=== PATIENT | female | born 1990 | race Caucasian/White ===

== ENCOUNTER 2016-11-07 16:39 | Emergency (ER) | payer OTHER ==
[~2016-11-07] VITALS: Ht 162.6 cm; Wt 113.4 kg
[2016-11-07 17:39] LABS: APPEARANCE,URINE SLIGHTLY CLOUDY; KETONES,URINE NEGATIVE (NEGATIVE); LEUKOCYTE ESTERASE ,URINE 2+ (NEGATIVE); NITRITE,URINE NEGATIVE (NEGATIVE); PH,URINE 6.5 (4.5-8.0); PROTEIN,URINE 2+ (NEGATIVE); UROBILINOGEN,URINE 1 MG/DL (0.0-1.0)
[2016-11-07 17:47] LABS: BACTERIA,URINE FEW /HPF; SQUAMOUS EPITHELIAL CELL,UR FEW /LPF (NONE/OCC)
[2016-11-07] MEDS ORDERED: NITROFURANTOIN100 M2 ORAL (18:00)
[2016-11-07] MEDS ORDERED: TYLENOL EXTRA500 MG ORAL (18:00)
[2016-11-07 18:17] VITALS: BP 127/88
[2016-11-07 18:19] VITALS: BP 127/88
--- NOTE | 2016-11-07 21:32 | Emergency Room Report ---
History of Present Illness General Chief Complaint: Female Urogenital Problems Source: Patient Present Illness HPI Patient is a 26-year-old female presenting with dysuria and increased vaginal bleeding. The patient states that she is currently menstruating but has noticed a darkened blood discharge from the vagina. The patient describes pain as 8/10 burning sensation which only occurs during urination. The pain does not radiate. The patient denies any other vaginal discharge including blood clots or tissue. The patient denies other symptoms including nausea, vomiting, fever, chills, flank pain Allergies: Coded Allergies: TRAZODONE (Verified Allergy, Unknown, 11/07/16) Patient History Past Medical History: see triage record Pertinent Family History: none Last Menstrual Period: Currently on menstrual cycle Now: No Reviewed Nursing Documentation: PMH: Agreed, PSxH: Agreed Nursing Documentation-PMH Past Medical History: No History, Except For Review of Systems All Other Systems: negative except mentioned in HPI Physical Exam Vital Signs Date Time Temp Pulse Resp B/P Pulse Ox O2 Delivery O2 Flow Rate FiO2 11/07/16 16:43 98.1 88 16 131/90 99 Room Air Sp02 EP Interpretation: reviewed, normal General Appearance: no apparent distress, alert, GCS 15, non-toxic Head: normocephalic, atraumatic Eyes: bilateral eye PERRL, bilateral eye normal inspection ENT: hearing grossly normal, normal pharynx, no angioedema, normal voice Gastrointestinal: normal bowel sounds, non tender, soft, non-distended, no guarding, no rebound Genitourinary: normal inspection, no CVA tenderness Musculoskeletal: back normal, gait/station normal, normal range of motion, non- tender Neurologic: alert, oriented x3, responsive, motor strength/tone normal, sensory intact, speech normal Psychiatric: judgement/insight normal, memory normal, mood/affect normal, no suicidal/homicidal ideation Skin: normal color, no rash, warm/dry, well hydrated Lymphatic: no adenopathy Medical Decision Making PA Attestation Dr. Hernandez is my supervising physician. Patient management was discussed with my supervising physician Diagnostic Impression: Primary Impression: Dysmenorrhea Additional Impression: Urinary tract infection ER Course Patient is a 26-year-old female presenting with dysuria and increased vaginal bleeding Differential diagnosis considered but not limited to: UTI, vaginitis, pyelonephritis, PID, Physical exam: Vitals are within normal limits. No apparent distress Abdomen is soft and nontender. No guarding. Normal bowel sounds. No CVA tenderness Urinalysis shows 2+ leukocyte esterase with 2-4 white blood cells and few bacteria. Otherwise consistent with menstruation The patient will be treated for UTI rarely based on symptoms. Patient is given a prescription for Macrobid and Tylenol. Pt states she is unable to tolerate nsaids. ER precautions are given and the patient will followup with PMD Laboratory Tests Test 11/07/16 17:00 Urine Color Red Urine Appearance Slightly cloudy Urine pH 6.5 (4.5-8.0) Urine Specific [place] 1.015 (1.005-1.035) Urine Protein 2+ (NEGATIVE) H Urine Glucose (UA) Negative (NEGATIVE) Urine Ketones Negative (NEGATIVE) Urine Occult Blood 5+ (NEGATIVE) H Urine Nitrite Negative (NEGATIVE) Urine Bilirubin Negative (NEGATIVE) Urine Urobilinogen 1 MG/DL (0.0-1.0) H Urine Leukocyte Esterase 2+ (NEGATIVE) H Urine RBC 10-15 /HPF (0 - 2) H Urine WBC 2-4 /HPF (0 - 2) Urine Squamous Epithelial Cells Few /LPF (NONE/OCC) Urine Bacteria Few /HPF (NONE) Urine HCG, Qualitative Negative Lab Results Impression Urinalysis shows 2+ leukocyte esterase with 2-4 white blood cells and few bacteria. Otherwise consistent with menstruation Last Vital Signs Date Time Temp Pulse Resp B/P Pulse Ox O2 Delivery O2 Flow Rate FiO2 11/07/16 18:19 98.2 84 16 127/88 98 Room Air Status: improved Disposition: HOME, SELF-CARE Condition: Improved Scripts Nitrofurantoin Monohyd/M-Cryst* (MACROBID 100 MG*) 100 Mg Capsule 100 MG ORAL EVERY 12 HOURS, #14 CAP Prov: TERZIAN,CARLOS P.A. 11/07/16 Acetaminophen* (TYLENOL EXTRA STRENGTH*) 500 Mg Tablet 500 MG ORAL Q8H Y for Prn Headache/Temp > 101, #30 TAB 0 Refills Prov: TERZIAN,CARLOS P.A. 11/07/16 Patient Instructions: Urinary Tract Infection, Dysmenorrhea Additional Instructions: I discussed my findings with the patient. All questions and concerns have been answered. Treatment and medication compliance have been addressed. I advised the patient that they need to follow up with PMD in 3-5 days. Return to ED if symptoms worsen, new symptoms arise, or if needed for any reason. Patient verbalized understanding of discharge instructions. CARLOS TORIBIO Nov 07, 2016 21:32
== END 2016-11-07 18:22 | disposition home or self-care (01) ==
LOC: EMR 17:01
DX: N39.0 Urinary tract infection, site not specified (principal); N94.6 Dysmenorrhea, unspecified; Z88.8 Allergy status to other drugs, medicaments and biological substances
CPT/HCPCS: 81003; 81025; 99284

== ENCOUNTER 2016-12-05 16:57 | Emergency (ER) | payer OTHER ==
[~2016-12-05] VITALS: Ht 165.1 cm; Wt 112.0 kg
[~2016-12-05 16:57] MED LIST: NITROFURANTOIN100 M2 ORAL; TYLENOL EXTRA500 MG ORAL
[2016-12-05] MEDS ORDERED: BENADRYL25 MG ORAL (17:19)
[2016-12-05] MEDS ORDERED: ANTI-ITCH56 GM TP (17:19)
--- NOTE | 2016-12-05 17:23 | Emergency Room Report ---
History of Present Illness General Chief Complaint: Skin Rash/Abscess Source: Patient Present Illness HPI 26 YO Female presents to the ED c/o Itching, swelling, and erythema of several insect bites on the lower extremity x 2 days. no relief from calamine lotion.Patient denies fevers, chills, abdominal pain, nausea, vomiting or lesions elsewhere. Patient denies swelling of the lips or time denies wheezing or shortness of breath patient denies recent outdoor activities such as hiking. pt UTD with vaccinations. reports hx of hypothyroid. Denies joint pain. Denies CP, Palpitations, LOC, AMS, dizziness, Changes in Vision, Sensation, paresthesias, or a sudden severe headache.. Allergies: Coded Allergies: TRAZODONE (Verified Allergy, Unknown, 11/07/16) Patient History Past Medical History: see triage record Past Surgical History: none Pertinent Family History: none Last Menstrual Period: 11/10/2016 Now: No Immunizations: UTD Reviewed Nursing Documentation: PMH: Agreed, PSxH: Agreed Nursing Documentation-PMH Past Medical History: No History, Except For Review of Systems All Other Systems: negative except mentioned in HPI Physical Exam Vital Signs Date Time Temp Pulse Resp B/P Pulse Ox O2 Delivery O2 Flow Rate FiO2 12/05/16 17:13 98.4 81 16 124/89 98 Room Air Sp02 EP Interpretation: reviewed, normal General Appearance: no apparent distress, alert, GCS 15, non-toxic Head: normocephalic, atraumatic Eyes: bilateral eye PERRL, bilateral eye normal inspection ENT: hearing grossly normal, normal pharynx, no angioedema, normal voice, other - no swelling of the lips or tongue Neck: full range of motion, supple/symm/no masses Respiratory: chest non-tender, lungs clear, normal breath sounds, no wheezing, speaking full sentences Cardiovascular #1: regular rate, rhythm, no edema Musculoskeletal: back normal, gait/station normal, normal range of motion, non- tender Neurologic: alert, oriented x3, responsive, motor strength/tone normal, sensory intact, speech normal Psychiatric: judgement/insight normal, memory normal, mood/affect normal Skin: rash - 4 lesions on the bilateral LE: blanching erythema with mild induration and increased temperature to palpation surrounding each punctate lesion, no targetoid lesions, consistent with insect bite and localized reaction , no crusting, or evidence to suggest secondary infeciton at this time. Lymphatic: no adenopathy Medical Decision Making PA Attestation Dr. Land is my supervising Physician whom patient management has been discussed with. Diagnostic Impression: Primary Impression: Insect bites Qualified Codes: W57.XXXA - Bitten or stung by nonvenomous insect and other nonvenomous arthropods, initial encounter ER Course Pt. presents to the ED c/o Itching, swelling, and erythema of several insect bites on the lower extremity x 2 days. no relief from calamine lotion. Ddx considered but are not limited to cellulitis, scabies, insect bites, tic bites, spider bites, contact dermatitis, Drug reaction, allergic reaction, fungal infection, lice. Vital signs: are WNL, pt. is afebrile H&PE are most consistent with insect bite with localized reaction, no evidence of infection. ORDERS: none required at this time, the diagnosis is clinical ED INTERVENTIONS: -25mg Benadryl PO DISCHARGE: At this time pt. is stable for d/c to home. Will provide printed patient care instructions, and any necessary prescriptions. Care plan and follow up instructions have been discussed with the patient prior to discharge. Last Vital Signs Date Time Temp Pulse Resp B/P Pulse Ox O2 Delivery O2 Flow Rate FiO2 12/05/16 17:13 98.4 81 16 124/89 98 Room Air Disposition: HOME, SELF-CARE Condition: Stable Scripts Hydrocortisone 2% Cream (ANTI-ITCH 2% CREAM) Y Cr 1 GM TP TID, #56 GM Prov: Saloni Silva 12/05/16 Diphenhydramine Hcl* (BENADRYL*) 25 Mg Capsule 25 MG ORAL Q6H Y for Itching for 7 Days, #28 CAP Prov: Saloni Silva 12/05/16 Patient Instructions: Insect Bite Additional Instructions: Take medications as directed. Follow up with PCP in 3-5 days Return sooner to ED if new symptoms occur, or current symptoms become worse. Do not drink alcohol, drive, or operate heavy machinery while taking Benadryl as this may cause drowsiness. - Please note that this Emergency Department Report was dictated using [employer]engineer technology software, occasionally this can lead to erroneous entry secondary to interpretation by the dictation equipment. Saloni Silva Dec 05, 2016 17:23
[2016-12-05 17:32] VITALS: BP 119/85
[2016-12-05 17:33] VITALS: BP 119/85
== END 2016-12-05 17:33 | disposition home or self-care (01) ==
LOC: EMR 17:31
DX: S80.862A Insect bite (nonvenomous), left lower leg, initial encounter (principal); S80.861A Insect bite (nonvenomous), right lower leg, initial encounter; Z88.8 Allergy status to other drugs, medicaments and biological substances; W57.XXXA Bitten or stung by nonvenomous insect and other nonvenomous arthropods, initial encounter; Y92.9 Unspecified place or not applicable; Y99.8 Other external cause status
CPT/HCPCS: 99284

== ENCOUNTER 2016-12-08 19:04 | Emergency (ER) | payer OTHER ==
[~2016-12-08] VITALS: Ht 165.1 cm; Wt 112.0 kg
[~2016-12-08 19:04] MED LIST changes: +ANTI-ITCH56 GM TP; +BENADRYL25 MG ORAL
[2016-12-08] MEDS ORDERED: Famotidine 20 MG/ 2ML VIAL IVP ONE (19:30)
[2016-12-08] MEDS ORDERED: Morphine Sulfate 4mg/ml Inj IVP ONE ×2 (19:30→21:15)
--- NOTE | 2016-12-08 19:42 | Emergency Room Report ---
History of Present Illness General Chief Complaint: Abdominal Pain Source: Patient, Medical Record Present Illness HPI Patient presents with epigastric pain. Began about 1 AM. Having loose stools for several days with some blood on the toilet paper. This pain is epigastric and doesn't radiate to her back. She's had pancreatitis in the past she denies it being like that. The pain is 9/10 at this time, burning, worse with movement and not radiating. She drank some alcohol last night. She was told she might have an ulcer. No URI sy, DO, dizziness, dysuria (though treated for UTI October (0-2 WBC at that time - culture not done).) Stress at home with grandmother living in. Not suicidal. Allergies: Coded Allergies: TRAZODONE (Verified Allergy, Unknown, 11/07/16) Patient History Past Medical History: see triage record Social History: Reports: alcohol use, Denies: smoking Social History Narrative with friend - stress at home Last Menstrual Period: 11/08/16 Now: No Reviewed Nursing Documentation: PMH: Agreed, PSxH: Agreed Nursing Documentation-PMH Hx Asthma: Yes - Bronchial asthma Hx Gastrointestinal Problems: Yes - Pancreatitis, Gall bladder removal 2007 Review of Systems All Other Systems: negative except mentioned in HPI Physical Exam Vital Signs Date Time Temp Pulse Resp B/P Pulse Ox O2 Delivery O2 Flow Rate FiO2 12/08/16 19:15 98.4 113 14 149/93 97 Room Air Sp02 EP Interpretation: reviewed, normal General Appearance: well appearing, no apparent distress - though in pain, GCS 15 Head: normocephalic Eyes: bilateral eye PERRL, bilateral eye anticteric, bilateral eye normal inspection ENT: moist mucus membranes Neck: supple Respiratory: lungs clear, normal breath sounds Cardiovascular #1: regular rate, rhythm Cardiovascular #2: 2+ radial (R) Gastrointestinal: soft, no rebound, guarding - epigastric, tenderness Musculoskeletal: back normal, gait/station normal, normal range of motion Neurologic: alert, oriented x3, grossly normal Psychiatric: depressed affect Skin: normal inspection, warm/dry Medical Decision Making Diagnostic Impression: Primary Impression: Abdominal pain Qualified Codes: R10.13 - Epigastric pain Additional Impressions: Urinary tract infection Qualified Codes: N30.00 - Acute cystitis without hematuria Stress ER Course Patient presents with epigastric pain that began last night. Differential includes gastritis, pancreatitis, GERD, vital syndrome amongst others. She also has been having diarrhea and some blood on the toilet paper which is consistent with a hemorrhoid. The fact she drink alcohol contributes to the problem. Patient to be treated with IV hydration, analgesia and Pepcid. Labs with normal WBC and good H/H. Lipase normal. Needing repeat morphine. Improved after this. UTI - Rocephin started and discussed prior dx "UTI". Improved. Still with min discomfort epigastric area. As normal WBC and improved, no imaging studies indicated at this time. Patient stable for outpatient observation and treatment. Laboratory Tests Test 12/08/16 20:10 12/08/16 20:15 Urine Color Brown Urine Appearance Clear Urine pH 5 (4.5-8.0) Urine Specific [place] 1.025 (1.005-1.035) Urine Protein 2+ (NEGATIVE) H Urine Glucose (UA) Negative (NEGATIVE) Urine Ketones 1+ (NEGATIVE) H Urine Occult Blood 3+ (NEGATIVE) H Urine Nitrite Negative (NEGATIVE) Urine Bilirubin 1+ (NEGATIVE) H Urine Ictotest Negative Urine Urobilinogen 4 MG/DL (0.0-1.0) H Urine Leukocyte Esterase 3+ (NEGATIVE) H Urine RBC 10-15 /HPF (0 - 2) H Urine WBC 5-10 /HPF (0 - 2) H Urine Squamous Epithelial Cells Few /LPF (NONE/OCC) Urine Amorphous Sediment Few /LPF (NONE) H Urine Bacteria Moderate /HPF (NONE) H Urine Mucus Few /LPF (NONE/OCC) H Urine HCG, Qualitative Negative Urine Opiates Screen Positive (NEGATIVE) H Urine Barbiturates Screen Negative (NEGATIVE) Phencyclidine (PCP) Screen Negative (NEGATIVE) Urine Amphetamines Screen Negative (NEGATIVE) Urine Benzodiazepines Screen Negative (NEGATIVE) Urine Cocaine Screen Negative (NEGATIVE) Urine Marijuana (THC) Screen Positive (NEGATIVE) H White Blood Count 8.3 K/UL (4.8-10.8) Red Blood Count 4.44 M/UL (4.20-5.40) Hemoglobin 13.6 G/DL (12.0-16.0) Hematocrit 39.5 % (37.0-47.0) Mean Corpuscular Volume 89 FL (80-99) Mean Corpuscular Hemoglobin 30.7 PG (27.0-31.0) Mean Corpuscular Hemoglobin Concent 34.6 G/DL (32.0-36.0) Red Cell Distribution Width 14.9 % (11.6-14.8) H Platelet Count 230 K/UL (150-450) Mean Platelet Volume 6.5 FL (6.5-10.1) Neutrophils (%) (Auto) 82.3 % (45.0-75.0) H Lymphocytes (%) (Auto) 8.3 % (20.0-45.0) L Monocytes (%) (Auto) 8.2 % (1.0-10.0) Eosinophils (%) (Auto) 0.1 % (0.0-3.0) Basophils (%) (Auto) 1.0 % (0.0-2.0) Prothrombin Time 10.1 SEC (9.30-11.50) Prothrombin Time INR 1.0 (0.9-1.1) PTT 24 SEC (23-33) Sodium Level 136 mEQ/L (135-145) Potassium Level 3.9 mEQ/L (3.4-4.9) Chloride Level 97 mEQ/L (98-107) L Carbon Dioxide Level 22 mEQ/L (20-30) Anion Gap 17 (5-15) H Blood Urea Nitrogen 12 mg/dL (7-23) Creatinine 0.8 mg/dL (0.5-0.9) Estimate Glomerular Filtration Rate > 60 mL/min (>60) Glucose Level 99 mg/dL (74-106) Calcium Level 8.5 mg/dL (8.6-10.2) L Total Bilirubin 0.7 mg/dL (0.0-1.2) Aspartate Amino Transferase (AST) 26 U/L (5-40) Alanine Aminotransferase (ALT) 37 U/L (3-33) H Alkaline Phosphatase 75 U/L (35-104) Total Protein 7.0 g/dL (6.6-8.7) Albumin 4.3 g/dL (3.5-5.2) Globulin 2.7 g/dL Albumin/Globulin Ratio 1.5 (1.0-2.7) Lipase 27 U/L (< 60) Serum Alcohol < 10 mg/dL Last Vital Signs Date Time Temp Pulse Resp B/P Pulse Ox O2 Delivery O2 Flow Rate FiO2 12/08/16 23:40 18 131/79 90 12/08/16 22:34 Room Air 12/08/16 20:30 88 12/08/16 19:15 98.4 Status: improved Disposition: HOME, SELF-CARE Condition: Improved Scripts Famotidine (PEPCID) 20 Mg Tablet 20 MG ORAL DAILY, #30 TAB 0 Refills Prov: Kingsley Das M.D. 12/08/16 Hydrocodone Bit/Acetaminophen 5-325* (NORCO 5-325*) 1 Each Tablet 1 TAB ORAL Q6H Y for For Pain, #10 TAB 0 Refills Prov: Kingsley Das M.D. 12/08/16 Ondansetron Odt* (ZOFRAN ODT*) 4 Mg Tab.rapdis 4 MG ORAL Q6H Y for Nausea & Vomiting, #10 TAB 1 Refill Prov: Kingsley Das M.D. 12/08/16 Nitrofurantoin Monohyd/M-Cryst* (MACROBID 100 MG*) 100 Mg Capsule 100 MG ORAL EVERY 12 HOURS, #14 CAP Prov: Kingsley Das M.D. 12/08/16 Kingsley Das M.D. Dec 08, 2016 19:42
[2016-12-08 20:30] VITALS: BP 130/72
[2016-12-08 20:30] LABS: APPEARANCE,URINE CLEAR; KETONES,URINE 1+ (NEGATIVE); LEUKOCYTE ESTERASE ,URINE 3+ (NEGATIVE); NITRITE,URINE NEGATIVE (NEGATIVE); PH,URINE 5 (4.5-8.0); PROTEIN,URINE 2+ (NEGATIVE); UROBILINOGEN,URINE 4 MG/DL (0.0-1.0)
[2016-12-08 20:33] LABS: EOSINOPHILS % (AUTO) 0.1 % (0.0-3.0); LYMPHOCYTES % (AUTO) 8.3 % (20.0-45.0); MEAN CORPUSCULAR HEMOGLOBIN 30.7 PG (27.0-31.0); MEAN CORPUSCULAR HGB CONC 34.6 G/DL (32.0-36.0); MEAN CORPUSCULAR VOLUME 89 FL (80-99); MEAN PLATELET VOLUME 6.5 FL (6.5-10.1); MONOCYTES % (AUTO) 8.2 % (1.0-10.0); NEUTROPHILS % (AUTO) 82.3 % (45.0-75.0); PLATELET COUNT 230 K/UL (150-450); RED BLOOD COUNT 4.44 M/UL (4.20-5.40); RED CELL DISTRIBUTION WIDTH 14.9 % (11.6-14.8); WHITE BLOOD COUNT 8.3 K/UL (4.8-10.8)
[2016-12-08 20:36] LABS: PROTHROMBIN TIME 10.1 SEC (9.30-11.50)
[2016-12-08 20:39] LABS: ALANINE AMINOTRANSFERASE 37 U/L (3-33); ALBUMIN/GLOBULIN RATIO 1.5 (1.0-2.7); ALCOHOL < 10 mg/dL; ANION GAP 17 (5-15); ASPARTATE AMINO TRANSFERASE 26 U/L (5-40); CALCIUM 8.5 mg/dL (8.6-10.2); CARBON DIOXIDE 22 mEQ/L (20-30); CHLORIDE 97 mEQ/L (98-107); CREATININE 0.8 mg/dL (0.5-0.9); GLOMERULAR FILTRATION RATE > 60 mL/min (>60); HEMOLYSIS 3; LIPASE 27 U/L (< 60); POTASSIUM 3.9 mEQ/L (3.4-4.9); SODIUM 136 mEQ/L (135-145)
[2016-12-08 20:55] LABS: BACTERIA,URINE MODERATE /HPF; SQUAMOUS EPITHELIAL CELL,UR FEW /LPF (NONE/OCC)
[2016-12-08 20:56] LABS: AMORPHOUS SEDIMENT,UR FEW /LPF; MUCUS,URINE FEW /LPF (NONE/OCC)
[2016-12-08 21:05] LABS: ICTOTEST NEGATIVE
[2016-12-08] MEDS ORDERED: LEVOTHYROXINE25 MCG ORAL (21:09)
[2016-12-08] MEDS ORDERED: ONDANSETRON ODT4 MG ORAL (21:09)
[2016-12-08 21:55] VITALS: BP 109/66
[2016-12-08] MEDS ORDERED: cefTRIAXone 1 GM in NS 55 ML IVPB ONE (22:15)
[2016-12-08] MEDS ORDERED: Oxycodone/Acetaminophen 5-325 ORAL ONE (22:30)
[2016-12-08 22:34] VITALS: BP 131/79
[2016-12-08] MEDS ORDERED: PEPCID20 MG ORAL (22:35)
[2016-12-08] MEDS ORDERED: ZOFRAN ODT4 MG ORAL (22:35)
[2016-12-08] MEDS ORDERED: NORCO 5-325 TA1 EACH ORAL (22:35)
[2016-12-08] MEDS ORDERED: NITROFURANTOIN100 M2 ORAL (22:35)
[2016-12-08 23:40] VITALS: BP 131/79
== END 2016-12-08 23:30 | disposition home or self-care (01) ==
LOC: EMR 20:12
DX: R10.13 Epigastric pain (principal); N39.0 Urinary tract infection, site not specified; J45.909 Unspecified asthma, uncomplicated; Z87.19 Personal history of other diseases of the digestive system; Z90.49 Acquired absence of other specified parts of digestive tract
CPT/HCPCS: 36415; 80053; 80300; 80329; 81003; 81025; 83690; 85025; 85610; 85730; 87086; 96374; 96375; 99284; J0696; J2270; J2405; S0028

== ENCOUNTER 2016-12-10 06:23 | Inpatient (IN) | payer OTHER ==
[2016-12-10] VITALS (7 sets, daily range): BP systolic 101–130; BP diastolic 58–95
[~2016-12-10] VITALS: Ht 165.1 cm; Wt 112.0 kg
[~2016-12-10 06:23] MED LIST changes: +LEVOTHYROXINE25 MCG ORAL; +NORCO 5-325 TA1 EACH ORAL; +ONDANSETRON ODT4 MG ORAL; +PEPCID20 MG ORAL; +ZOFRAN ODT4 MG ORAL
--- NOTE | 2016-12-10 06:49 | Emergency Room Report ---
History of Present Illness General Chief Complaint: Abdominal Pain Source: Patient Present Illness HPI Patient presents emergency department today complaining of acute onset of abdominal pain the last 2-3 days. Patient has epigastric pain associated with nausea vomiting and diarrhea. Patient states that she has had over 30 episodes of diarrhea since her last visit. Patient was actually here 2 days ago at that time received laboratory workup nausea medication and pain medication. She states that her pain persists. She was diagnosed with UTI at that time started on Macrobid. She states that she's been able to tolerate the medication. No other complaints are noted. Symptoms noted to be severe. Patient denies any fever. Patient denies any dysuria or frequency or vaginal discharge. She denies any rectal bleeding.No other modifying factors. No other associated signs and symptoms. No other complaints were noted. Allergies: Coded Allergies: TRAZODONE (Verified Allergy, Unknown, 11/07/16) Patient History Past Medical History: none Past Surgical History: none Pertinent Family History: none Social History: Denies: alcohol use, drug use, smoking Last Menstrual Period: November 08 Now: No : 0 Reviewed Nursing Documentation: PMH: Agreed, PSxH: Agreed Nursing Documentation-PMH Hx Asthma: Yes - Bronchial asthma Hx Gastrointestinal Problems: Yes - Pancreatitis, Gall bladder removal 2007 Review of Systems All Other Systems: negative except mentioned in HPI Physical Exam Vital Signs Date Time Temp Pulse Resp B/P Pulse Ox O2 Delivery O2 Flow Rate FiO2 12/10/16 06:28 98.1 77 15 116/79 96 Room Air Sp02 EP Interpretation: reviewed, normal General Appearance: normal inspection, well appearing, no apparent distress, alert Head: atraumatic Eyes: bilateral eye normal inspection ENT: normal ENT inspection, hearing grossly normal, normal voice Neck: normal inspection, full range of motion, supple, no bony tend Respiratory: normal inspection, lungs clear, normal breath sounds, no respiratory distress, no retraction, no wheezing Cardiovascular #1: regular rate, rhythm, no edema Gastrointestinal: normal inspection, normal bowel sounds, soft, no guarding, no hernia, tenderness - Epigastric Genitourinary: no CVA tenderness Musculoskeletal: normal inspection, back normal, normal range of motion Neurologic: normal inspection, alert, responsive, speech normal Psychiatric: normal inspection, judgement/insight normal, anxious Skin: normal inspection, normal color, no rash Medical Decision Making Diagnostic Impression: Primary Impression: Abdominal pain Qualified Codes: R10.84 - Generalized abdominal pain Additional Impressions: Mesenteric adenitis UTI (urinary tract infection) Qualified Codes: N30.00 - Acute cystitis without hematuria ER Course Patient presents to the emergency department today complaining of abdominal pain. Differential considerations include acute pancreatitis, cholecystitis, gastritis, hepatitis, appendicitis just to name a few. Given the severity of the patient's presentation I felt this is a highly complex patient. This patient required extensive workup. Patient's laboratory workup was not impressive. CT however show evidence of mesenteric adenitis. Patient was given fluids and pain medication but remains in pain. Patient also has severe nausea. Patient states that she's unable to tolerate anything by mouth. Therefore felt the patient require admission for further pain control as well as fluid hydration. Patient also had evidence of UTI therefore patient was given one dose of Rocephin and to be initially. Patient also was given Dilaudid IV as well as Ativan. Case was discussed with Dr. Shadi Duke for transfer to [facility]. Patient is stable for transfer. Labs Test 12/10/16 06:50 White Blood Count 4.8 K/UL (4.8-10.8) Red Blood Count 4.81 M/UL (4.20-5.40) Hemoglobin 13.9 G/DL (12.0-16.0) Hematocrit 43.5 % (37.0-47.0) Mean Corpuscular Volume 91 FL (80-99) Mean Corpuscular Hemoglobin 28.8 PG (27.0-31.0) Mean Corpuscular Hemoglobin Concent 31.9 G/DL (32.0-36.0) Red Cell Distribution Width 14.9 % (11.6-14.8) Platelet Count 223 K/UL (150-450) Mean Platelet Volume 6.8 FL (6.5-10.1) Neutrophils (%) (Auto) 64.9 % (45.0-75.0) Lymphocytes (%) (Auto) 19.9 % (20.0-45.0) Monocytes (%) (Auto) 12.5 % (1.0-10.0) Eosinophils (%) (Auto) 2.1 % (0.0-3.0) Basophils (%) (Auto) 0.7 % (0.0-2.0) Urine Color Yellow Urine Appearance Slightly cloudy Urine pH 5 (4.5-8.0) Urine Specific [place] 1.025 (1.005-1.035) Urine Protein 2+ (NEGATIVE) Urine Glucose (UA) Negative (NEGATIVE) Urine Ketones 4+ (NEGATIVE) Urine Occult Blood 3+ (NEGATIVE) Urine Nitrite Negative (NEGATIVE) Urine Bilirubin 1+ (NEGATIVE) Urine Ictotest Negative Urine Urobilinogen 1 MG/DL (0.0-1.0) Urine Leukocyte Esterase 2+ (NEGATIVE) Urine RBC 5-10 /HPF (0 - 2) Urine WBC 5-10 /HPF (0 - 2) Urine Squamous Epithelial Cells Few /LPF (NONE/OCC) Urine Bacteria Few /HPF (NONE) Urine Mucus Moderate /LPF (NONE/OCC) Urine HCG, Qualitative Negative Sodium Level 138 mEQ/L (135-145) Potassium Level 3.5 mEQ/L (3.4-4.9) Chloride Level 96 mEQ/L (98-107) Carbon Dioxide Level 23 mEQ/L (20-30) Anion Gap 19 (5-15) Blood Urea Nitrogen 9 mg/dL (7-23) Creatinine 0.8 mg/dL (0.5-0.9) Estimat Glomerular Filtration Rate > 60 mL/min (>60) Glucose Level 89 mg/dL (74-106) Calcium Level 9.1 mg/dL (8.6-10.2) Total Bilirubin 0.4 mg/dL (0.0-1.2) Aspartate Amino Transf (AST/SGOT) 47 U/L (5-40) Alanine Aminotransferase (ALT/SGPT) 54 U/L (3-33) Alkaline Phosphatase 75 U/L (35-104) Total Protein 7.4 g/dL (6.6-8.7) Albumin 4.5 g/dL (3.5-5.2) Globulin 2.9 g/dL Albumin/Globulin Ratio 1.5 (1.0-2.7) Lipase 37 U/L (< 60) CT/MRI/US Diagnostic Results CT/MRI/US Diagnostic Results : Imaging Test Ordered: CT abdomenand pelvis: Mesenteric adenitis Last Vital Signs Date Time Temp Pulse Resp B/P Pulse Ox O2 Delivery O2 Flow Rate FiO2 12/10/16 06:28 98.1 77 15 116/79 96 Room Air Status: improved Disposition: XFER SHT-TRM HOSP Condition: Serious SILVINA ENGLE M.D. Dec 10, 2016 06:49
[2016-12-10] MEDS ORDERED: HYDROmorphone 1mg/ml Carpuject ONE (06:51)
[2016-12-10] MEDS ORDERED: HYDROmorphone 1 MG in NS 55 ML IV ONE (07:00)
[2016-12-10 07:09] LABS: APPEARANCE,URINE SLIGHTLY CLOUDY; KETONES,URINE 4+ (NEGATIVE); LEUKOCYTE ESTERASE ,URINE 2+ (NEGATIVE); NITRITE,URINE NEGATIVE (NEGATIVE); PH,URINE 5 (4.5-8.0); PROTEIN,URINE 2+ (NEGATIVE); UROBILINOGEN,URINE 1 MG/DL (0.0-1.0)
[2016-12-10 07:21] LABS: BASOPHILS % (AUTO) 0.7 % (0.0-2.0); EOSINOPHILS % (AUTO) 2.1 % (0.0-3.0); LYMPHOCYTES % (AUTO) 19.9 % (20.0-45.0); MEAN CORPUSCULAR HEMOGLOBIN 28.8 PG (27.0-31.0); MEAN CORPUSCULAR HGB CONC 31.9 G/DL (32.0-36.0); MEAN CORPUSCULAR VOLUME 91 FL (80-99); MEAN PLATELET VOLUME 6.8 FL (6.5-10.1); MONOCYTES % (AUTO) 12.5 % (1.0-10.0); NEUTROPHILS % (AUTO) 64.9 % (45.0-75.0); PLATELET COUNT 223 K/UL (150-450); RED BLOOD COUNT 4.81 M/UL (4.20-5.40); RED CELL DISTRIBUTION WIDTH 14.9 % (11.6-14.8); WHITE BLOOD COUNT 4.8 K/UL (4.8-10.8)
[2016-12-10 07:23] LABS: BACTERIA,URINE FEW /HPF; ICTOTEST NEGATIVE; MUCUS,URINE MODERATE /LPF (NONE/OCC); SQUAMOUS EPITHELIAL CELL,UR FEW /LPF (NONE/OCC)
[2016-12-10] MEDS ORDERED: cefTRIAXone 1 GM in NS 55 ML IVPB ONE (07:30)
[2016-12-10 07:31] LABS: ALANINE AMINOTRANSFERASE 54 U/L (3-33); ALBUMIN/GLOBULIN RATIO 1.5 (1.0-2.7); ANION GAP 19 (5-15); ASPARTATE AMINO TRANSFERASE 47 U/L (5-40); CALCIUM 9.1 mg/dL (8.6-10.2); CARBON DIOXIDE 23 mEQ/L (20-30); CHLORIDE 96 mEQ/L (98-107); CREATININE 0.8 mg/dL (0.5-0.9); GLOMERULAR FILTRATION RATE > 60 mL/min (>60); HEMOLYSIS 3; LIPASE 37 U/L (< 60); POTASSIUM 3.5 mEQ/L (3.4-4.9); SODIUM 138 mEQ/L (135-145); TOTAL PROTEIN 7.4 g/dL (6.6-8.7)
[2016-12-10] MEDS ORDERED: LORazepam Inj 2mg/ml 1ml IV ONE (08:30)
--- NOTE | 2016-12-10 09:16 | Diagnostic Imaging Report ---
Clinical Indication: Acute onset of abdominal pain in the last 2-3 days, epigastric associated with nausea vomiting and diarrhea Technique: No oral contrast utilized, per emergency room physician request IV administration nonionic contrast. Venous phase spiral acquisition obtained through the abdomen and pelvis. Multiplanar reconstructions were generated. Total dose length product 1078 mGycm. CTDIvol(s) 19 mGy. Dose reduction achieved using automated exposure control Comparison: None Findings: The appendix is normal. There is a small amount of free pelvic fluid. No evidence of diverticulosis or diverticulitis. No free intraperitoneal air. No small bowel distention. Distal esophagus, stomach, duodenum are unremarkable. The gallbladder is surgically absent. No biliary ductal dilatation. The liver, pancreas, spleen, adrenals, kidneys are unremarkable. There is incidental finding of a retroaortic left renal vein. Numerous prominent lymph nodes are seen throughout the mesenteric root, especially in the right lower quadrant. No retroperitoneal mass or adenopathy. No pelvic mass or adenopathy. Normal uterus and ovaries. Normal bladder. The included lung bases are clear. The bones are unremarkable. Impression: Numerous and prominent mesenteric root lymph nodes, nonspecific although most likely reactive. No acute or significant abnormality otherwise Trace free pelvic fluid, most likely physiologic Surgically absent gallbladder. Negative for biliary ductal dilatation Incidental finding retroaortic left renal vein The CT scanner at [facility] is accredited by the [employer] and the scans are performed using protocols designed to limit radiation exposure to as low as reasonably achievable to attain images of sufficient resolution adequate for diagnostic evaluation.
[2016-12-10] MEDS ORDERED: Mylanta II UD 30ml ORAL PRN (12:30)
[2016-12-10] MEDS ORDERED: Miralax 17gm pkt ORAL PRN (12:30)
[2016-12-10] MEDS ORDERED: Nitroglycerin Subl 0.4mg tab (Bottle Of 25) SL PRN (12:30)
[2016-12-10] MEDS: D5 1/2NS 1,000 ML IV SCH (13:04)
--- NOTE | 2016-12-10 13:20 | GI Initial Consult Note ---
History of Present Illness General Date patient seen: Dec 10, 2016 Reason for Hospitalization: Abdominal Pain Referring physician: SAMAN Reason for Consultation: ABDOMINAL PAIN Present Illness HPI Patient presents emergency department today complaining of acute onset of abdominal pain the last 2-3 days. Patient has epigastric pain associated with nausea vomiting and diarrhea. Patient states that she has had over 30 episodes of diarrhea since her last visit. Patient was actually here 2 days ago at that time received laboratory workup nausea medication and pain medication. She states that her pain persists. She was diagnosed with UTI at that time started on Macrobid. She states that she's been able to tolerate the medication. No other complaints are noted. Symptoms noted to be severe. Patient denies any fever. Patient denies any dysuria or frequency or vaginal discharge. She denies any rectal bleeding.No other modifying factors. No other associated signs and symptoms. No other complaints were noted. GI CONSULT: HPI as noted above. GI consulted for abdominal pain accompanied with N/V and diarrhea, denies any blood. Pt seen on floor awake, A&Ox4 with no active s/sx of N/V or diarrhea. The patient recently has had ETOH abuse x 1 week due to stress and does occasional MJ. She presents today with transaminitis. No history of any endoscopic procedures. APCT unremarkable, see full report below. Service Date: 12/10/16 Procedure: CT Abdomen Pelvis w/Contrast Clinical Indication: Acute onset of abdominal pain in the last 2-3 days, epigastric associated with nausea vomiting and diarrhea Impression: Numerous and prominent mesenteric root lymph nodes, nonspecific although most likely reactive. No acute or significant abnormality otherwise Trace free pelvic fluid, most likely physiologic Surgically absent gallbladder. Negative for biliary ductal dilatation Incidental finding retroaortic left renal vein Home Meds Active Scripts Famotidine (PEPCID) 20 Mg Tablet, 20 MG ORAL DAILY, #30 TAB 0 Refills Prov:Kingsley Das M.D. 12/08/16 Hydrocodone Bit/Acetaminophen 5-325* (NORCO 5-325*) 1 Each Tablet, 1 TAB ORAL Q6H Y for For Pain, #10 TAB 0 Refills Prov:Kingsley Das M.D. 12/08/16 Ondansetron Odt* (ZOFRAN ODT*) 4 Mg Tab.rapdis, 4 MG ORAL Q6H Y for Nausea & Vomiting, #10 TAB 1 Refill Prov:Kingsley Das M.D. 12/08/16 Nitrofurantoin Monohyd/M-Cryst* (MACROBID 100 MG*) 100 Mg Capsule, 100 MG ORAL EVERY 12 HOURS, #14 CAP Prov:Kingsley Das M.D. 12/08/16 Hydrocortisone 2% Cream (ANTI-ITCH 2% CREAM) Y Cr, 1 GM TP TID, #56 GM Prov:Saloni Silva P.A. 12/05/16 Diphenhydramine Hcl* (BENADRYL*) 25 Mg Capsule, 25 MG ORAL Q6H Y for Itching for 7 Days, #28 CAP Prov:Saloni Silva P.A. 12/05/16 Nitrofurantoin Monohyd/M-Cryst* (MACROBID 100 MG*) 100 Mg Capsule, 100 MG ORAL EVERY 12 HOURS, #14 CAP Prov:TERZIAN,CARLOS P.A. 11/07/16 Acetaminophen* (TYLENOL EXTRA STRENGTH*) 500 Mg Tablet, 500 MG ORAL Q8H Y for Prn Headache/Temp > 101, #30 TAB 0 Refills Prov:TERZIAN,CARLOS P.A. 11/07/16 Reported Medications Levothyroxine Sodium* (LEVOTHYROXINE SODIUM*) 25 Mcg Tablet, ORAL DAILY, TAB Take in the morning on an empty stomach, at least 30 minutes before food. 12/08/16 Ondansetron Odt* (ZOFRAN ODT*) 4 Mg Tab.rapdis, 4 MG ORAL EVERY 8 HOURS, #10 TAB 0 Refills 12/08/16 Med list reviewed/reconciled: Yes Allergies: Coded Allergies: TRAZODONE (Verified Allergy, Unknown, 11/07/16) Patient History History Provided By: Patient, Medical Record PMH Narrative Past Medical History: none Past Surgical History: none Pertinent Family History: none Social History: Denies: alcohol use, drug use, smoking Last Menstrual Period: November 08 Now: No : 0 Reviewed Nursing Documentation: PMH: Agreed, PSxH: Agreed Nursing Documentation-PMH Hx Asthma: Yes - Bronchial asthma Hx Gastrointestinal Problems: Yes - Pancreatitis, Gall bladder removal 2007 Social History: Reports: alcohol use - ETOH abuse, last use x 3 days, drug use - MJ Review of Systems All Other Systems: negative except mentioned in HPI Physical Exam Vital Signs Date Time Temp Pulse Resp B/P Pulse Ox O2 Delivery O2 Flow Rate FiO2 12/10/16 06:28 98.1 77 15 116/79 96 Room Air Sp02 EP Interpretation: reviewed Labs Laboratory Tests Test 12/10/16 06:50 White Blood Count 4.8 K/UL (4.8-10.8) Red Blood Count 4.81 M/UL (4.20-5.40) Hemoglobin 13.9 G/DL (12.0-16.0) Hematocrit 43.5 % (37.0-47.0) Mean Corpuscular Volume 91 FL (80-99) Mean Corpuscular Hemoglobin 28.8 PG (27.0-31.0) Mean Corpuscular Hemoglobin Concent 31.9 G/DL (32.0-36.0) L Red Cell Distribution Width 14.9 % (11.6-14.8) H Platelet Count 223 K/UL (150-450) Mean Platelet Volume 6.8 FL (6.5-10.1) Neutrophils (%) (Auto) 64.9 % (45.0-75.0) Lymphocytes (%) (Auto) 19.9 % (20.0-45.0) L Monocytes (%) (Auto) 12.5 % (1.0-10.0) H Eosinophils (%) (Auto) 2.1 % (0.0-3.0) Basophils (%) (Auto) 0.7 % (0.0-2.0) Urine Color Yellow Urine Appearance Slightly cloudy Urine pH 5 (4.5-8.0) Urine Specific [place] 1.025 (1.005-1.035) Urine Protein 2+ (NEGATIVE) H Urine Glucose (UA) Negative (NEGATIVE) Urine Ketones 4+ (NEGATIVE) H Urine Occult Blood 3+ (NEGATIVE) H Urine Nitrite Negative (NEGATIVE) Urine Bilirubin 1+ (NEGATIVE) H Urine Ictotest Negative Urine Urobilinogen 1 MG/DL (0.0-1.0) H Urine Leukocyte Esterase 2+ (NEGATIVE) H Urine RBC 5-10 /HPF (0 - 2) H Urine WBC 5-10 /HPF (0 - 2) H Urine Squamous Epithelial Cells Few /LPF (NONE/OCC) Urine Bacteria Few /HPF (NONE) Urine Mucus Moderate /LPF (NONE/OCC) H Urine HCG, Qualitative Negative Sodium Level 138 mEQ/L (135-145) Potassium Level 3.5 mEQ/L (3.4-4.9) Chloride Level 96 mEQ/L (98-107) L Carbon Dioxide Level 23 mEQ/L (20-30) Anion Gap 19 (5-15) H Blood Urea Nitrogen 9 mg/dL (7-23) Creatinine 0.8 mg/dL (0.5-0.9) Estimat Glomerular Filtration Rate > 60 mL/min (>60) Glucose Level 89 mg/dL (74-106) Calcium Level 9.1 mg/dL (8.6-10.2) Total Bilirubin 0.4 mg/dL (0.0-1.2) Aspartate Amino Transf (AST/SGOT) 47 U/L (5-40) H Alanine Aminotransferase (ALT/SGPT) 54 U/L (3-33) H Alkaline Phosphatase 75 U/L (35-104) Total Protein 7.4 g/dL (6.6-8.7) Albumin 4.5 g/dL (3.5-5.2) Globulin 2.9 g/dL Albumin/Globulin Ratio 1.5 (1.0-2.7) Lipase 37 U/L (< 60) General Appearance: well appearing, no apparent distress, alert, obese Head: normocephalic EENT: PERRL/EOMI, normal ENT inspection Neck: normal inspection, full range of motion, supple Respiratory: normal breath sounds, no respiratory distress Cardiovascular: normal rate Gastrointestinal: soft, tenderness Rectal: deferred Musculoskeletal: back normal Neurologic: normal inspection, alert, oriented x3, responsive Psychiatric: normal inspection, judgement/insight normal, memory normal Skin: normal inspection, normal color, no rash, warm/dry Lymphatic: normal inspection, no adenopathy Current Medications Current Medications Medications (Trade) Dose Ordered Sig/Shaheen Route PRN Reason Start Time Stop Time Status Last Admin Dose Admin Acetaminophen (Tylenol) 650 mg Q4H PRN ORAL fever 12/10/16 12:30 01/09/17 12:29 Al Hydroxide/Mg Hydroxide (Mylanta II) 30 ml Q6H PRN ORAL dyspepsia 12/10/16 12:30 01/09/17 12:29 Dextrose STAT PRN IV Hypoglycemia 12/10/16 12:30 01/09/17 12:29 Dextrose/Sodium Chloride (D5 0.45% NS) 1,000 ml @ 75 mls/hr [id number] IV 12/10/16 13:00 01/09/17 12:59 12/10/16 13:04 Diphenhydramine HCl (Benadryl) 25 mg Q6H PRN ORAL Itching/Pruritis 12/10/16 12:30 01/09/17 12:29 Heparin Sodium (Porcine) (Heparin 5000 units/ml) 5,000 units EVERY 12 HOURS SUBQ 12/10/16 21:00 01/09/17 20:59 Morphine Sulfate (Morphine Sulfate) 2 mg EVERY 4 HOURS PRN IVP severe Pain (Pain Scale 7-10) 12/10/16 12:30 12/17/16 12:29 Nitroglycerin (Ntg) 0.4 mg Q5M X 3 DOSES PRN SL Prn Chest Pain 12/10/16 12:30 01/09/17 12:29 Ondansetron HCl (Zofran) 4 mg Q6H PRN IVP Nausea & Vomiting 12/10/16 12:30 01/09/17 12:29 Piperacillin Sod/ Tazobactam Sod/ Sodium Chloride (Zosyn/Sodium Chloride) 110 ml @ 27.5 mls/hr EVERY 8 HOURS IVPB 12/10/16 14:00 12/17/16 13:59 Polyethylene Glycol (Miralax) 17 gm HSPRN PRN ORAL Constipation 12/10/16 12:30 01/09/17 12:29 Temazepam (Restoril) 15 mg HSPRN PRN ORAL Insomnia 12/10/16 12:30 12/17/16 12:29 GI: Plan Problems: (1) Abdominal gas pain (2) Transaminitis (3) Diarrhea (4) Nausea & vomiting (5) Stress (6) Abdominal pain Plan APCT reviewed >> negative for dilated ducts lipase negative symptomatic treatment at this time zofran prn simethicone prn for gas pain ordered stool studies, cdiff, O&P ordered utox, HcG CLD, adv as tolerated avoid ETOH repeat LFTs fu labs Discussed with Dr. Lezama. Thank you for referring this patient, we will follow. Madison Tovar N.P. Dec 10, 2016 13:20
[2016-12-10] MEDS: Morphine Sulfate 2mg/ml Inj IVP PRN ×3 (13:28→21:31)
[2016-12-10] MEDS: Simethicone 80mg tab ORAL PRN (14:36)
[2016-12-10] MEDS: Piperacillin/Tazobactam 3.375 GM in NS 110 ML IVPB SCH ×2 (14:36→21:31)
[2016-12-10] MEDS ORDERED: NS 55ml IV ONE (15:42)
[2016-12-10] MEDS: Loperamide 2mg cap ORAL PRN ×2 (18:18→23:21)
[2016-12-10] MEDS: Heparin 5000 units/ml inj SUBQ SCH (21:31)
--- NOTE | 2016-12-10 23:10 | History and Physical ---
History of Present Illness General Date patient seen: Dec 11, 2016 Reason for Hospitalization: Abdominal Pain Present Illness HPI 26 year old female presented to emergency department today complaining of acute onset of abdominal pain the last 2-3 days. Patient has epigastric pain associated with nausea vomiting and diarrhea. Patient states that she has had over 30 episodes of diarrhea since her last visit. Symptoms noted to be severe. Patient denies any fever. Patient denies any dysuria or frequency or vaginal discharge. She denies any rectal bleeding.No other modifying factors. No other associated signs and symptoms. No other complaints were noted. Allergies: Coded Allergies: TRAZODONE (Verified Allergy, Unknown, 11/07/16) Medication History Scheduled Famotidine (Pepcid), 20 MG ORAL DAILY Hydrocortisone 2% Cream (Anti-Itch 2% Cream), 1 GM TP TID Levothyroxine Sodium* (Levothyroxine Sodium*), Unknown Dose ORAL DAILY, ( Reported) Nitrofurantoin Monohyd/M-Cryst* (Macrobid 100 Mg*), 100 MG ORAL EVERY 12 HOURS Nitrofurantoin Monohyd/M-Cryst* (Macrobid 100 Mg*), 100 MG ORAL EVERY 12 HOURS Ondansetron Odt* (Zofran Odt*), 4 MG ORAL EVERY 8 HOURS, (Reported) Scheduled PRN Acetaminophen* (Tylenol Extra Strength*), 500 MG ORAL Q8H PRN for Prn Headache/ Temp > 101 Diphenhydramine Hcl* (Benadryl*), 25 MG ORAL Q6H PRN for Itching Hydrocodone Bit/Acetaminophen 5-325* ([place] 5-325*), 1 TAB ORAL Q6H PRN for For Pain Ondansetron Odt* (Zofran Odt*), 4 MG ORAL Q6H PRN for Nausea & Vomiting Patient History Healthcare decision maker Resuscitation status Full Code Advanced Directive on File Past Medical/Surgical History Past Medical/Surgical History: (1) UTI (urinary tract infection) Review of Systems All Other Systems: negative except mentioned in HPI Physical Exam General Appearance: WD/WN Lines, tubes and drains: peripheral HEENT: atraumatic Neck: non-tender, normal alignment Respiratory/Chest: chest wall non-tender, lungs clear Cardiovascular/Chest: normal peripheral pulses, normal rate Abdomen: normal bowel sounds, non tender Genitourinary/Rectal: normal genital exam Extremities: normal range of motion Last 24 Hour Vital Signs Date Time Temp Pulse Resp B/P Pulse Ox O2 Delivery O2 Flow Rate FiO2 12/10/16 20:00 97.9 79 20 130/84 96 Room Air 12/10/16 17:56 97.7 12/10/16 16:00 97.7 83 20 101/58 99 Room Air 12/10/16 13:00 97.7 83 20 101/58 99 Room Air 12/10/16 12:20 79 16 125/76 100 Room Air 12/10/16 10:19 98.1 78 16 120/70 99 Room Air 12/10/16 07:24 98.1 79 16 121/70 100 Room Air 12/10/16 07:23 98.1 12/10/16 07:07 98.1 93 17 118/95 99 Room Air 12/10/16 06:28 98.1 77 15 116/79 96 Room Air Intake and Output 12/09/16 12/10/16 19:00 07:00 Intake Total 0 ml Balance 0 ml Intake Oral 0 ml Laboratory Tests Test 12/10/16 06:50 White Blood Count 4.8 K/UL (4.8-10.8) Red Blood Count 4.81 M/UL (4.20-5.40) Hemoglobin 13.9 G/DL (12.0-16.0) Hematocrit 43.5 % (37.0-47.0) Mean Corpuscular Volume 91 FL (80-99) Mean Corpuscular Hemoglobin 28.8 PG (27.0-31.0) Mean Corpuscular Hemoglobin Concent 31.9 G/DL (32.0-36.0) L Red Cell Distribution Width 14.9 % (11.6-14.8) H Platelet Count 223 K/UL (150-450) Mean Platelet Volume 6.8 FL (6.5-10.1) Neutrophils (%) (Auto) 64.9 % (45.0-75.0) Lymphocytes (%) (Auto) 19.9 % (20.0-45.0) L Monocytes (%) (Auto) 12.5 % (1.0-10.0) H Eosinophils (%) (Auto) 2.1 % (0.0-3.0) Basophils (%) (Auto) 0.7 % (0.0-2.0) Urine Color Yellow Urine Appearance Slightly cloudy Urine pH 5 (4.5-8.0) Urine Specific [place] 1.025 (1.005-1.035) Urine Protein 2+ (NEGATIVE) H Urine Glucose (UA) Negative (NEGATIVE) Urine Ketones 4+ (NEGATIVE) H Urine Occult Blood 3+ (NEGATIVE) H Urine Nitrite Negative (NEGATIVE) Urine Bilirubin 1+ (NEGATIVE) H Urine Ictotest Negative Urine Urobilinogen 1 MG/DL (0.0-1.0) H Urine Leukocyte Esterase 2+ (NEGATIVE) H Urine RBC 5-10 /HPF (0 - 2) H Urine WBC 5-10 /HPF (0 - 2) H Urine Squamous Epithelial Cells Few /LPF (NONE/OCC) Urine Bacteria Few /HPF (NONE) Urine Mucus Moderate /LPF (NONE/OCC) H Urine HCG, Qualitative Negative Sodium Level 138 mEQ/L (135-145) Potassium Level 3.5 mEQ/L (3.4-4.9) Chloride Level 96 mEQ/L (98-107) L Carbon Dioxide Level 23 mEQ/L (20-30) Anion Gap 19 (5-15) H Blood Urea Nitrogen 9 mg/dL (7-23) Creatinine 0.8 mg/dL (0.5-0.9) Estimat Glomerular Filtration Rate > 60 mL/min (>60) Glucose Level 89 mg/dL (74-106) Calcium Level 9.1 mg/dL (8.6-10.2) Total Bilirubin 0.4 mg/dL (0.0-1.2) Aspartate Amino Transf (AST/SGOT) 47 U/L (5-40) H Alanine Aminotransferase (ALT/SGPT) 54 U/L (3-33) H Alkaline Phosphatase 75 U/L (35-104) Total Protein 7.4 g/dL (6.6-8.7) Albumin 4.5 g/dL (3.5-5.2) Globulin 2.9 g/dL Albumin/Globulin Ratio 1.5 (1.0-2.7) Lipase 37 U/L (< 60) Human Chorionic Gonadotropin, Qual Negative Urine Opiates Screen Positive (NEGATIVE) H Urine Barbiturates Screen Negative (NEGATIVE) Phencyclidine (PCP) Screen Negative (NEGATIVE) Urine Amphetamines Screen Negative (NEGATIVE) Urine Benzodiazepines Screen Negative (NEGATIVE) Urine Cocaine Screen Negative (NEGATIVE) Urine Marijuana (THC) Screen Positive (NEGATIVE) H Height (Feet): 5 Height (Inches): 5.00 Weight (Pounds): 247 Medications Current Medications Medications (Trade) Dose Ordered Sig/Shaheen Route PRN Reason Start Time Stop Time Status Last Admin Dose Admin Acetaminophen (Tylenol) 650 mg Q4H PRN ORAL fever 12/10/16 12:30 01/09/17 12:29 Al Hydroxide/Mg Hydroxide (Mylanta II) 30 ml Q6H PRN ORAL dyspepsia 12/10/16 12:30 01/09/17 12:29 Dextrose STAT PRN IV Hypoglycemia 12/10/16 12:30 01/09/17 12:29 Dextrose/Sodium Chloride (D5 0.45% NS) 1,000 ml @ 75 mls/hr [id number] IV 12/10/16 13:00 01/09/17 12:59 12/10/16 13:04 Diphenhydramine HCl (Benadryl) 25 mg Q6H PRN ORAL Itching/Pruritis 12/10/16 12:30 01/09/17 12:29 Heparin Sodium (Porcine) (Heparin 5000 units/ml) 5,000 units EVERY 12 HOURS SUBQ 12/10/16 21:00 01/09/17 20:59 12/10/16 21:31 Loperamide HCl (Imodium) 2 mg Q4H PRN ORAL Diarrhea 12/10/16 18:15 01/09/17 18:14 12/10/16 18:18 Morphine Sulfate (Morphine Sulfate) 2 mg EVERY 4 HOURS PRN IVP severe Pain (Pain Scale 7-10) 12/10/16 12:30 12/17/16 12:29 12/10/16 21:31 Nitroglycerin (Ntg) 0.4 mg Q5M X 3 DOSES PRN SL Prn Chest Pain 12/10/16 12:30 01/09/17 12:29 Ondansetron HCl (Zofran) 4 mg Q6H PRN IVP Nausea & Vomiting 12/10/16 12:30 01/09/17 12:29 12/10/16 18:35 Piperacillin Sod/ Tazobactam Sod/ Sodium Chloride (Zosyn/Sodium Chloride) 110 ml @ 27.5 mls/hr EVERY 8 HOURS IVPB 12/10/16 14:00 12/17/16 13:59 12/10/16 21:31 Polyethylene Glycol (Miralax) 17 gm HSPRN PRN ORAL Constipation 12/10/16 12:30 01/09/17 12:29 Simethicone (Mylicon) 80 mg QID PRN ORAL GAS PAIN 12/10/16 13:45 01/09/17 13:44 12/10/16 14:36 Temazepam (Restoril) 15 mg HSPRN PRN ORAL Insomnia 12/10/16 12:30 12/17/16 12:29 12/10/16 22:25 Assessment/Plan Problem List: (1) Enteritis ICD Codes: K52.9 - Noninfective gastroenteritis and colitis, unspecified SNOMED: 74391719 (2) Transaminitis ICD Codes: R74.0 - Nonspecific elevation of levels of transaminase and lactic acid dehydrogenase [LDH] SNOMED: 956773229 (3) Nausea & vomiting ICD Codes: R11.2 - Nausea with vomiting, unspecified SNOMED: 14630604 Assessment/Plan NPO IV fluids empiric abx GI evaluation MINA VASQUEZ Dec 10, 2016 23:10
[2016-12-11] VITALS (7 sets, daily range): BP systolic 118–134; BP diastolic 60–81
[2016-12-11] MEDS: D5 1/2NS 1,000 ML IV SCH ×2 (02:20→17:53)
[2016-12-11] MEDS: Morphine Sulfate 2mg/ml Inj IVP PRN ×5 (04:07→22:24)
[2016-12-11] MEDS: Piperacillin/Tazobactam 3.375 GM in NS 110 ML IVPB SCH ×3 (06:01→21:32)
[2016-12-11 07:13] LABS: ALANINE AMINOTRANSFERASE 51 U/L (3-33); ALBUMIN/GLOBULIN RATIO 1.3 (1.0-2.7); AMYLASE 37 U/L (10-110); ANION GAP 14 (5-15); ASPARTATE AMINO TRANSFERASE 42 U/L (5-40); CALCIUM 8.3 mg/dL (8.6-10.2); CARBON DIOXIDE 22 mEQ/L (20-30); CHLORIDE 102 mEQ/L (98-107); CREATININE 0.6 mg/dL (0.5-0.9); GLOMERULAR FILTRATION RATE > 60 mL/min (>60); HEMOLYSIS 3; POTASSIUM 3.3 mEQ/L (3.4-4.9); SODIUM 138 mEQ/L (135-145); TOTAL PROTEIN 5.9 g/dL (6.6-8.7)
[2016-12-11 07:21] LABS: MEAN CORPUSCULAR HEMOGLOBIN 29.4 PG (27.0-31.0); MEAN CORPUSCULAR HGB CONC 33.6 G/DL (32.0-36.0); MEAN CORPUSCULAR VOLUME 88 FL (80-99); MEAN PLATELET VOLUME 6.5 FL (6.5-10.1); PLATELET COUNT 180 K/UL (150-450); RED BLOOD COUNT 3.98 M/UL (4.20-5.40); RED CELL DISTRIBUTION WIDTH 14.7 % (11.6-14.8); WHITE BLOOD COUNT 3.6 K/UL (4.8-10.8)
[2016-12-11] MEDS: Heparin 5000 units/ml inj SUBQ SCH ×2 (08:57→21:34)
[2016-12-11 11:09] LABS: BAND NEUTROPHILS % (MANUAL) 0 % (0-8); BASOPHILS % (MANUAL) 0 % (0-2); EOSINOPHILS % (MANUAL) 2 % (0-3); HYPOCHROMASIA 1+; LYMPHOCYTES % (MANUAL) 47 % (20-45); NEUTROPHILS % (MANUAL) 39 % (45-75); PLATELET ESTIMATE ADEQUATE; PLATELET MORPHOLOGY NORMAL; TOTAL CELLS COUNTED 100
[2016-12-11 11:10] LABS: ANISOCYTOSIS 1+
--- NOTE | 2016-12-11 11:36 | GI Progress Note ---
Assessment/Plan Problems: (1) Abdominal gas pain ICD Codes: R14.1 - Gas pain SNOMED: 86480494 (2) Transaminitis ICD Codes: R74.0 - Nonspecific elevation of levels of transaminase and lactic acid dehydrogenase [LDH] SNOMED: 626777199 (3) Nausea & vomiting ICD Codes: R11.2 - Nausea with vomiting, unspecified SNOMED: 28485238 (4) Stress ICD Codes: F43.9 - Reaction to severe stress, unspecified SNOMED: 102053269, 93025059 (5) Abdominal pain ICD Codes: R10.9 - Unspecified abdominal pain SNOMED: 12475945, 59450026 Qualifiers: Qualified Codes: R10.84 - Generalized abdominal pain (6) Diarrhea ICD Codes: R19.7 - Diarrhea, unspecified SNOMED: 12756335 Status: stable Status Narrative Discussed with Dr. Lezama. Assessment/Plan APCT reviewed >> negative for dilated ducts lipase negative HcG >> negative utox >> positive for MJ symptomatic treatment at this time IV hydration and electrolyte replacement zofran prn simethicone prn fu stool studies, cdiff, O&P FLD, adv as tolerated avoid ETOH repeat LFTs fu labs Subjective Subjective diarrhea Objective Last 24 Hour Vital Signs Date Time Temp Pulse Resp B/P Pulse Ox O2 Delivery O2 Flow Rate FiO2 12/11/16 08:31 96.4 79 19 128/81 96 Room Air 12/11/16 04:10 97.2 72 20 118/78 96 Room Air 12/10/16 23:54 98.1 75 20 130/80 95 Room Air 12/10/16 20:00 97.9 79 20 130/84 96 Room Air 12/10/16 17:56 97.7 12/10/16 16:00 97.7 83 20 101/58 99 Room Air 12/10/16 13:00 97.7 83 20 101/58 99 Room Air 12/10/16 12:20 79 16 125/76 100 Room Air Intake and Output 12/10/16 12/11/16 19:00 07:00 Intake Total 895.0 ml 1032.5 ml Balance 895.0 ml 1032.5 ml Intake Oral 560 ml 400 ml IV Total 335.0 ml 632.5 ml # Voids 3 # Bowel Movements 3 10 Laboratory Tests Test 12/11/16 05:40 White Blood Count 3.6 K/UL (4.8-10.8) L Red Blood Count 3.98 M/UL (4.20-5.40) L Hemoglobin 11.7 G/DL (12.0-16.0) L Hematocrit 34.8 % (37.0-47.0) L Mean Corpuscular Volume 88 FL (80-99) Mean Corpuscular Hemoglobin 29.4 PG (27.0-31.0) Mean Corpuscular Hemoglobin Concent 33.6 G/DL (32.0-36.0) Red Cell Distribution Width 14.7 % (11.6-14.8) Platelet Count 180 K/UL (150-450) Mean Platelet Volume 6.5 FL (6.5-10.1) Neutrophils (%) (Auto) % (45.0-75.0) Lymphocytes (%) (Auto) % (20.0-45.0) Monocytes (%) (Auto) % (1.0-10.0) Eosinophils (%) (Auto) % (0.0-3.0) Basophils (%) (Auto) % (0.0-2.0) Differential Total Cells Counted 100 Neutrophils % (Manual) 39 % (45-75) L Lymphocytes % (Manual) 47 % (20-45) H Monocytes % (Manual) 12 % (1-10) H Eosinophils % (Manual) 2 % (0-3) Basophils % (Manual) 0 % (0-2) Band Neutrophils 0 % (0-8) Platelet Estimate Adequate Platelet Morphology Normal Hypochromasia 1+ Anisocytosis 1+ Activated Partial Thromboplast Time 24 SEC (23-33) Sodium Level 138 mEQ/L (135-145) Potassium Level 3.3 mEQ/L (3.4-4.9) L Chloride Level 102 mEQ/L (98-107) Carbon Dioxide Level 22 mEQ/L (20-30) Anion Gap 14 (5-15) Blood Urea Nitrogen 5 mg/dL (7-23) L Creatinine 0.6 mg/dL (0.5-0.9) Estimat Glomerular Filtration Rate > 60 mL/min (>60) Glucose Level 97 mg/dL (74-106) Calcium Level 8.3 mg/dL (8.6-10.2) L Total Bilirubin 0.3 mg/dL (0.0-1.2) Aspartate Amino Transf (AST/SGOT) 42 U/L (5-40) H Alanine Aminotransferase (ALT/SGPT) 51 U/L (3-33) H Alkaline Phosphatase 57 U/L (35-104) Total Protein 5.9 g/dL (6.6-8.7) L Albumin 3.4 g/dL (3.5-5.2) L Globulin 2.5 g/dL Albumin/Globulin Ratio 1.3 (1.0-2.7) Amylase Level 37 U/L (10-110) Height (Feet): 5 Height (Inches): 5.00 Weight (Pounds): 247 General Appearance: no apparent distress, alert, obese Cardiovascular: normal rate Respiratory/Chest: normal breath sounds, no respiratory distress Abdominal Exam: normal bowel sounds, soft, tender Extremities: normal range of motion Madison Tovar N.P. Dec 11, 2016 11:36
[2016-12-11] MEDS: Loperamide 2mg cap ORAL PRN (13:34)
[2016-12-11] MEDS: Simethicone 80mg tab ORAL PRN (17:09)
--- NOTE | 2016-12-11 17:16 | Pulmonology Progress Note ---
Assessment/Plan Problems: (1) Enteritis (2) Transaminitis (3) Nausea & vomiting Assessment/Plan symptomatic treatment IV fluids check cultures advance diet as tolerated. Subjective ROS Limited/Unobtainable: No Constitutional: Reports: no symptoms HEENT: Repors: no symptoms Respiratory: Reports: no symptoms Allergies: Coded Allergies: TRAZODONE (Verified Allergy, Unknown, 11/07/16) Objective Last 24 Hour Vital Signs Date Time Temp Pulse Resp B/P Pulse Ox O2 Delivery O2 Flow Rate FiO2 12/11/16 14:00 97.7 84 20 124/60 98 Room Air 12/11/16 12:41 97.5 78 18 129/68 98 Room Air 12/11/16 08:31 96.4 79 19 128/81 96 Room Air 12/11/16 04:10 97.2 72 20 118/78 96 Room Air 12/10/16 23:54 98.1 75 20 130/80 95 Room Air 12/10/16 20:00 97.9 79 20 130/84 96 Room Air 12/10/16 17:56 97.7 Intake and Output 12/10/16 12/11/16 19:00 07:00 Intake Total 895.0 ml 1032.5 ml Balance 895.0 ml 1032.5 ml Intake Oral 560 ml 400 ml IV Total 335.0 ml 632.5 ml # Voids 3 # Bowel Movements 3 10 General Appearance: no acute distress HEENT: atraumatic Respiratory/Chest: chest wall non-tender, lungs clear Cardiovascular: normal peripheral pulses, normal rate Abdomen: normal bowel sounds, soft, non tender, no organomegaly Extremities: no cyanosis, no clubbing Skin: no rash, no lesions, no ulcers Neurologic/Psychiatric: joist setter II-XII grossly normal Lymphatic: no neck adenopathy Microbiology Date/Time Source Procedure Growth Status 12/10/16 14:51 Stool Stool Culture Pending Resulted 12/10/16 14:51 Stool Clostridium difficile Toxin Assay - Final Resulted Laboratory Tests 12/11/16 05:40: White Blood Count 3.6L, Red Blood Count 3.98L, Hemoglobin 11.7L, Hematocrit 34.8L, Mean Corpuscular Volume 88, Mean Corpuscular Hemoglobin 29.4, Mean Corpuscular Hemoglobin Concent 33.6, Red Cell Distribution Width 14.7, Platelet Count 180, Mean Platelet Volume 6.5, Neutrophils (%) (Auto) , Lymphocytes (%) ( Auto) , Monocytes (%) (Auto) , Eosinophils (%) (Auto) , Basophils (%) (Auto) , Differential Total Cells Counted 100, Neutrophils % (Manual) 39L, Lymphocytes % (Manual) 47H, Monocytes % (Manual) 12H, Eosinophils % (Manual) 2, Basophils % ( Manual) 0, Band Neutrophils 0, Platelet Estimate Adequate, Platelet Morphology Normal, Hypochromasia 1+, Anisocytosis 1+, Activated Partial Thromboplast Time 24, Sodium Level 138, Potassium Level 3.3L, Chloride Level 102, Carbon Dioxide Level 22, Anion Gap 14, Blood Urea Nitrogen 5L, Creatinine 0.6, Estimat Glomerular Filtration Rate > 60, Glucose Level 97, Calcium Level 8.3L, Total Bilirubin 0.3, Aspartate Amino Transf (AST/SGOT) 42H, Alanine Aminotransferase ( ALT/SGPT) 51H, Alkaline Phosphatase 57, Total Protein 5.9L, Albumin 3.4L, Globulin 2.5, Albumin/Globulin Ratio 1.3, Amylase Level 37 Current Medications Medications (Trade) Dose Ordered Sig/Shaheen Route PRN Reason Start Time Stop Time Status Last Admin Dose Admin Acetaminophen (Tylenol) 650 mg Q4H PRN ORAL fever 12/10/16 12:30 01/09/17 12:29 Al Hydroxide/Mg Hydroxide (Mylanta II) 30 ml Q6H PRN ORAL dyspepsia 12/10/16 12:30 01/09/17 12:29 Dextrose STAT PRN IV Hypoglycemia 12/10/16 12:30 01/09/17 12:29 Dextrose/Sodium Chloride (D5 0.45% NS) 1,000 ml @ 75 mls/hr [id number] IV 12/10/16 13:00 01/09/17 12:59 12/10/16 13:04 Diphenhydramine HCl (Benadryl) 25 mg Q6H PRN ORAL Itching/Pruritis 12/10/16 12:30 01/09/17 12:29 Heparin Sodium (Porcine) (Heparin 5000 units/ml) 5,000 units EVERY 12 HOURS SUBQ 12/10/16 21:00 01/09/17 20:59 12/11/16 08:57 Loperamide HCl (Imodium) 2 mg Q4H PRN ORAL Diarrhea 12/10/16 18:15 01/09/17 18:14 12/11/16 13:34 Morphine Sulfate (Morphine Sulfate) 2 mg EVERY 4 HOURS PRN IVP severe Pain (Pain Scale 7-10) 12/10/16 12:30 12/17/16 12:29 12/11/16 13:34 Nitroglycerin (Ntg) 0.4 mg Q5M X 3 DOSES PRN SL Prn Chest Pain 12/10/16 12:30 01/09/17 12:29 Ondansetron HCl (Zofran) 4 mg Q6H PRN IVP Nausea & Vomiting 12/10/16 12:30 01/09/17 12:29 12/11/16 04:06 Piperacillin Sod/ Tazobactam Sod/ Sodium Chloride (Zosyn/Sodium Chloride) 110 ml @ 27.5 mls/hr EVERY 8 HOURS IVPB 12/10/16 14:00 12/17/16 13:59 12/11/16 13:33 Polyethylene Glycol (Miralax) 17 gm HSPRN PRN ORAL Constipation 12/10/16 12:30 01/09/17 12:29 Simethicone (Mylicon) 80 mg QID PRN ORAL GAS PAIN 12/10/16 13:45 01/09/17 13:44 12/10/16 14:36 Temazepam (Restoril) 15 mg HSPRN PRN ORAL Insomnia 12/10/16 12:30 12/17/16 12:29 12/10/16 22:25 MINA VASQUEZ Dec 11, 2016 17:16
[2016-12-12] MEDS: Morphine Sulfate 2mg/ml Inj IVP PRN ×6 (02:45→23:12)
[2016-12-12 04:00] VITALS: BP 124/76
[2016-12-12] MEDS: D5 1/2NS 1,000 ML IV SCH ×2 (05:00→17:25)
[2016-12-12] MEDS: Piperacillin/Tazobactam 3.375 GM in NS 110 ML IVPB SCH ×3 (05:24→20:58)
[2016-12-12 07:00] LABS: ALANINE AMINOTRANSFERASE 101 U/L (3-33); ALBUMIN/GLOBULIN RATIO 1.4 (1.0-2.7); ANION GAP 14 (5-15); ASPARTATE AMINO TRANSFERASE 119 U/L (5-40); CALCIUM 8.6 mg/dL (8.6-10.2); CARBON DIOXIDE 25 mEQ/L (20-30); CHLORIDE 98 mEQ/L (98-107); CREATININE 0.6 mg/dL (0.5-0.9); GLOMERULAR FILTRATION RATE > 60 mL/min (>60); HEMOLYSIS 3; POTASSIUM 3.3 mEQ/L (3.4-4.9); SODIUM 137 mEQ/L (135-145)
[2016-12-12 07:04] LABS: BASOPHILS % (AUTO) 1.2 % (0.0-2.0); LYMPHOCYTES % (AUTO) 44.1 % (20.0-45.0); MEAN CORPUSCULAR HEMOGLOBIN 29.3 PG (27.0-31.0); MEAN CORPUSCULAR HGB CONC 32.6 G/DL (32.0-36.0); MEAN CORPUSCULAR VOLUME 90 FL (80-99); MEAN PLATELET VOLUME 6.5 FL (6.5-10.1); MONOCYTES % (AUTO) 13.1 % (1.0-10.0); NEUTROPHILS % (AUTO) 38.6 % (45.0-75.0); PLATELET COUNT 199 K/UL (150-450); RED BLOOD COUNT 3.88 M/UL (4.20-5.40); WHITE BLOOD COUNT 4.2 K/UL (4.8-10.8)
[2016-12-12 08:29] VITALS: BP 125/88
[2016-12-12] MEDS: Heparin 5000 units/ml inj SUBQ SCH ×2 (08:33→20:57)
--- NOTE | 2016-12-12 12:31 | GI Progress Note ---
Assessment/Plan Problems: (1) Abdominal gas pain ICD Codes: R14.1 - Gas pain SNOMED: 59767636 (2) Transaminitis ICD Codes: R74.0 - Nonspecific elevation of levels of transaminase and lactic acid dehydrogenase [LDH] SNOMED: 346686268 (3) Nausea & vomiting ICD Codes: R11.2 - Nausea with vomiting, unspecified SNOMED: 02767100 (4) Stress ICD Codes: F43.9 - Reaction to severe stress, unspecified SNOMED: 459689566, 12048884 (5) Abdominal pain ICD Codes: R10.9 - Unspecified abdominal pain SNOMED: 94710790, 96240112 Qualifiers: Qualified Codes: R10.84 - Generalized abdominal pain (6) Diarrhea ICD Codes: R19.7 - Diarrhea, unspecified SNOMED: 24902858 Status: stable, progressing Status Narrative Discussed with Dr. Lezama. Assessment/Plan APCT reviewed >> negative for dilated ducts lipase negative HcG >> negative utox >> positive for MJ cdiff negative stool culture > normal fecal andre symptomatic treatment at this time ordered Lomotil TID adv to soft diet IV hydration and electrolyte replacement zofran prn simethicone prn fu O&P avoid ETOH repeat LFTs fu labs Subjective Subjective diarrhea Objective Last 24 Hour Vital Signs Date Time Temp Pulse Resp B/P Pulse Ox O2 Delivery O2 Flow Rate FiO2 12/12/16 08:29 97.4 69 17 125/88 99 Room Air 12/12/16 04:00 89 18 124/76 100 Room Air 12/11/16 23:57 97.7 78 20 121/76 98 Room Air 12/11/16 20:00 97.7 77 18 134/81 96 Room Air 12/11/16 16:20 97.7 84 20 124/60 98 Room Air 12/11/16 14:00 97.7 84 20 124/60 98 Room Air 12/11/16 12:41 97.5 78 18 129/68 98 Room Air Intake and Output 12/11/16 12/12/16 19:00 07:00 Intake Total 822.5 ml 557.5 ml Balance 822.5 ml 557.5 ml Intake Oral 480 ml IV Total 342.5 ml 557.5 ml # Voids 1 3 # Bowel Movements 1 6 Laboratory Tests Test 12/12/16 06:05 White Blood Count 4.2 K/UL (4.8-10.8) L Red Blood Count 3.88 M/UL (4.20-5.40) L Hemoglobin 11.4 G/DL (12.0-16.0) L Hematocrit 34.9 % (37.0-47.0) L Mean Corpuscular Volume 90 FL (80-99) Mean Corpuscular Hemoglobin 29.3 PG (27.0-31.0) Mean Corpuscular Hemoglobin Concent 32.6 G/DL (32.0-36.0) Red Cell Distribution Width 15.0 % (11.6-14.8) H Platelet Count 199 K/UL (150-450) Mean Platelet Volume 6.5 FL (6.5-10.1) Neutrophils (%) (Auto) 38.6 % (45.0-75.0) L Lymphocytes (%) (Auto) 44.1 % (20.0-45.0) Monocytes (%) (Auto) 13.1 % (1.0-10.0) H Eosinophils (%) (Auto) 3.0 % (0.0-3.0) Basophils (%) (Auto) 1.2 % (0.0-2.0) Sodium Level 137 mEQ/L (135-145) Potassium Level 3.3 mEQ/L (3.4-4.9) L Chloride Level 98 mEQ/L (98-107) Carbon Dioxide Level 25 mEQ/L (20-30) Anion Gap 14 (5-15) Blood Urea Nitrogen 4 mg/dL (7-23) L Creatinine 0.6 mg/dL (0.5-0.9) Estimat Glomerular Filtration Rate > 60 mL/min (>60) Glucose Level 99 mg/dL (74-106) Calcium Level 8.6 mg/dL (8.6-10.2) Total Bilirubin 0.4 mg/dL (0.0-1.2) Aspartate Amino Transf (AST/SGOT) 119 U/L (5-40) H Alanine Aminotransferase (ALT/SGPT) 101 U/L (3-33) H Alkaline Phosphatase 73 U/L (35-104) Total Protein 6.0 g/dL (6.6-8.7) L Albumin 3.5 g/dL (3.5-5.2) Globulin 2.5 g/dL Albumin/Globulin Ratio 1.4 (1.0-2.7) Height (Feet): 5 Height (Inches): 5.00 Weight (Pounds): 247 General Appearance: no apparent distress, alert, obese Cardiovascular: normal rate Respiratory/Chest: normal breath sounds, no respiratory distress Abdominal Exam: normal bowel sounds, non tender, soft Extremities: normal range of motion Madison Tovar N.P. Dec 12, 2016 12:31
[2016-12-12 12:42] VITALS: BP 121/69
[2016-12-12] MEDS: Lomotil 2.5mg tab ORAL SCH ×2 (13:10→17:25)
--- NOTE | 2016-12-12 13:14 | Consultation ---
Consult Note Consult Note ID Dic# [id number] REG CORBIN M.D. Dec 12, 2016 13:14
[2016-12-12] MEDS: Simethicone 80mg tab ORAL PRN (15:00)
--- NOTE | 2016-12-12 15:49 | Diagnostic Imaging Report ---
Indication: Abdominal distention, abnormal liver function tests Technique: Puente-scale and duplex images of the upper abdomen were obtained Comparison: Abdomen pelvis CT 12/10/2016 Findings: Gallbladder is surgically absent. Common bile duct measures 6 mm in diameter. No intrahepatic biliary ductal dilatation. Liver demonstrates normal echogenicity, no focal abnormality. Portal vein and hepatic veins are patent. Pancreas is incompletely visualized due to overlying bowel gas, visualized portions are unremarkable. Spleen is unremarkable. Left kidney measures 12.9 cm in length. Right kidney measures 11.3 cm length. Both kidneys demonstrate normal echogenicity. There is no hydronephrosis. No focal abnormality . Non-aneurysmal abdominal aorta . Impression: Surgically absent gallbladder Negative for dilated ducts No other significant abnormality. Note inability to visualized portions of the pancreas
[2016-12-12 16:20] VITALS: BP 132/92
[2016-12-12] MEDS ORDERED: Tubing IV Secondary IV ONE (16:29)
[2016-12-12] MEDS ORDERED: D5 1/2NS 1000ml IV ONE (16:29)
--- NOTE | 2016-12-12 16:33 | Pulmonology Progress Note ---
Assessment/Plan Problems: (1) Enteritis (2) Transaminitis (3) Nausea & vomiting Assessment/Plan symptomatic treatment IV fluids check cultures advance diet as tolerated. abdominal us was negative dc planning when full diet is tolerated Subjective ROS Limited/Unobtainable: No Interval Events: feeling better, Allergies: Coded Allergies: TRAZODONE (Verified Allergy, Unknown, 11/07/16) Objective Last 24 Hour Vital Signs Date Time Temp Pulse Resp B/P Pulse Ox O2 Delivery O2 Flow Rate FiO2 12/12/16 12:42 97.7 67 20 121/69 98 Room Air 12/12/16 08:29 97.4 69 17 125/88 99 Room Air 12/12/16 04:00 89 18 124/76 100 Room Air 12/11/16 23:57 97.7 78 20 121/76 98 Room Air 12/11/16 20:00 97.7 77 18 134/81 96 Room Air Intake and Output 12/11/16 12/12/16 19:00 07:00 Intake Total 822.5 ml 557.5 ml Balance 822.5 ml 557.5 ml Intake Oral 480 ml IV Total 342.5 ml 557.5 ml # Voids 1 3 # Bowel Movements 1 6 General Appearance: WD/WN HEENT: atraumatic, anicteric Respiratory/Chest: chest wall non-tender, lungs clear Cardiovascular: normal peripheral pulses, normal rate Extremities: no cyanosis, no clubbing Skin: no ulcers Neurologic/Psychiatric: no motor/sensory deficits Microbiology Date/Time Source Procedure Growth Status 12/10/16 14:51 Stool Stool Culture - Preliminary NORMAL FECAL BLAIR. Resulted 12/10/16 14:51 Stool Clostridium difficile Toxin Assay - Final Resulted Laboratory Tests 12/12/16 06:05: White Blood Count 4.2L, Red Blood Count 3.88L, Hemoglobin 11.4L, Hematocrit 34.9L, Mean Corpuscular Volume 90, Mean Corpuscular Hemoglobin 29.3, Mean Corpuscular Hemoglobin Concent 32.6, Red Cell Distribution Width 15.0H, Platelet Count 199, Mean Platelet Volume 6.5, Neutrophils (%) (Auto) 38.6L, Lymphocytes (%) (Auto) 44.1, Monocytes (%) (Auto) 13.1H, Eosinophils (%) (Auto) 3.0, Basophils (%) (Auto) 1.2, Sodium Level 137, Potassium Level 3.3L, Chloride Level 98, Carbon Dioxide Level 25, Anion Gap 14, Blood Urea Nitrogen 4L, Creatinine 0.6, Estimat Glomerular Filtration Rate > 60, Glucose Level 99, Calcium Level 8.6, Total Bilirubin 0.4, Aspartate Amino Transf (AST/SGOT) 119H, Alanine Aminotransferase (ALT/SGPT) 101H, Alkaline Phosphatase 73, Total Protein 6.0L, Albumin 3.5, Globulin 2.5, Albumin/Globulin Ratio 1.4 Current Medications Medications (Trade) Dose Ordered Sig/Shaheen Route PRN Reason Start Time Stop Time Status Last Admin Dose Admin Acetaminophen (Tylenol) 650 mg Q4H PRN ORAL fever 12/10/16 12:30 01/09/17 12:29 Al Hydroxide/Mg Hydroxide (Mylanta II) 30 ml Q6H PRN ORAL dyspepsia 12/10/16 12:30 01/09/17 12:29 Dextrose STAT PRN IV Hypoglycemia 12/10/16 12:30 01/09/17 12:29 Dextrose/Sodium Chloride (D5 0.45% NS) 1,000 ml @ 75 mls/hr [id number] IV 12/10/16 13:00 01/09/17 12:59 12/11/16 17:53 Diphenhydramine HCl (Benadryl) 25 mg Q6H PRN ORAL Itching/Pruritis 12/10/16 12:30 01/09/17 12:29 Diphenoxylate HCl/ Atropine (Lomotil) 5 mg TID ORAL 12/12/16 13:00 01/11/17 12:59 12/12/16 13:10 Heparin Sodium (Porcine) (Heparin 5000 units/ml) 5,000 units EVERY 12 HOURS SUBQ 12/10/16 21:00 01/09/17 20:59 12/12/16 08:33 Loperamide HCl (Imodium) 2 mg Q4H PRN ORAL Diarrhea 12/10/16 18:15 01/09/17 18:14 12/11/16 13:34 Morphine Sulfate (Morphine Sulfate) 2 mg EVERY 4 HOURS PRN IVP severe Pain (Pain Scale 7-10) 12/10/16 12:30 12/17/16 12:29 12/12/16 14:52 Nitroglycerin (Ntg) 0.4 mg Q5M X 3 DOSES PRN SL Prn Chest Pain 12/10/16 12:30 01/09/17 12:29 Ondansetron HCl (Zofran) 4 mg Q6H PRN IVP Nausea & Vomiting 12/10/16 12:30 01/09/17 12:29 12/12/16 13:13 Piperacillin Sod/ Tazobactam Sod/ Sodium Chloride (Zosyn/Sodium Chloride) 110 ml @ 27.5 mls/hr EVERY 8 HOURS IVPB 12/10/16 14:00 12/17/16 13:59 12/12/16 13:11 Polyethylene Glycol (Miralax) 17 gm HSPRN PRN ORAL Constipation 12/10/16 12:30 01/09/17 12:29 Simethicone (Mylicon) 80 mg QID PRN ORAL GAS PAIN 12/10/16 13:45 01/09/17 13:44 12/12/16 15:00 Temazepam (Restoril) 15 mg HSPRN PRN ORAL Insomnia 12/10/16 12:30 12/17/16 12:29 12/10/16 22:25 MINA VASQUEZ Dec 12, 2016 16:33
[2016-12-12 20:00] VITALS: BP 121/76
--- NOTE | 2016-12-12 22:17 | Consultation ---
DATE OF CONSULTATION: INFECTIOUS DISEASE CONSULTATION: REASON FOR CONSULTATION: Evaluation of patient for diarrhea. HISTORY OF PRESENT ILLNESS: The patient is a 26-year-old female who was admitted to this medical center due to diarrhea x3 days. The patient has no blood in the stool. She did not feel well and was admitted. The patient has history of alcohol abuse, history of pancreatitis in the past, and history of cholecystectomy. MEDICATIONS: Zosyn. ALLERGIES: Trazodone . SOCIAL HISTORY: Significant for alcohol abuse. Also, the patient's urine toxicology is positive for opiate and marijuana. FAMILY HISTORY: Not contributing. REVIEW OF SYSTEMS: HEENT: No recent change in vision or hearing. Pulmonary: No cough or shortness of breath. Cardiovascular: No chest pain or palpitation. Gastrointestinal/Abdomen: As mentioned above. No abdominal tenderness at this time. However, the patient has abdominal pain and tenderness prior to admission. No nausea or vomiting. Genitourinary: Dysuria x2 days. PHYSICAL EXAMINATION: VITAL SIGNS: Temperature 97.7 degrees, blood pressure 120/69, pulse 86, and respiratory rate 18. HEENT: Mouth, no thrush. No icterus. NECK: CHEST: Coarse breathing sounds. HEART: S1 and S2. ABDOMEN: Soft. EXTREMITIES: No cyanosis. NEUROLOGIC: Awake. LABORATORY AND DIAGNOSTIC DATA: White blood cells 4.2, hemoglobin 11.4, and platelets 199,000. UA, 5 to 10 white blood cells. BUN 4 and creatinine 0.6. AST 190 and ALT 101. Glucose of 73. Urine culture is growing mixed organisms. Stool culture is pending. Stool C. difficile toxin is negative. ASSESSMENT: The patient is a 26-year-old female with multiple medical problems, was admitted to this medical center. The patient's abdominal pain maybe due to alcohol abuse, gastritis versus pancreatitis. Diarrhea also could be infectious process versus pancreatic insufficiency. PLAN: 1. We will continue the patient on IV Zosyn. 2. Monitor CBC. 3. Monitor BMP. 4. Monitor cultures(stool and blood). 5. We will follow GI recommendations. 6. Repeat urine culture and UA . 7. Based on the patient's clinical course and labs, we will do further recommendation. Thank you, Dr. Poole, for allowing me to participate in the care of this patient. I will follow the patient with you during this hospitalization Charlie Nj M.D. DR: Rama JOB#: [id number] CC:
[2016-12-13] VITALS: BP 119/64
[2016-12-13] MEDS: D5 1/2NS 1,000 ML IV SCH (02:00)
[2016-12-13] MEDS: Morphine Sulfate 2mg/ml Inj IVP PRN ×4 (03:59→16:10)
[2016-12-13 04:00] VITALS: BP 115/71
[2016-12-13] MEDS: Simethicone 80mg tab ORAL PRN ×2 (04:16→17:34)
[2016-12-13] MEDS: Piperacillin/Tazobactam 3.375 GM in NS 110 ML IVPB SCH ×2 (05:55→13:20)
[2016-12-13 07:25] LABS: EOSINOPHILS % (AUTO) 2.3 % (0.0-3.0); LYMPHOCYTES % (AUTO) 36.8 % (20.0-45.0); MEAN CORPUSCULAR HEMOGLOBIN 29.7 PG (27.0-31.0); MEAN CORPUSCULAR HGB CONC 32.8 G/DL (32.0-36.0); MEAN CORPUSCULAR VOLUME 90 FL (80-99); MEAN PLATELET VOLUME 6.8 FL (6.5-10.1); MONOCYTES % (AUTO) 9.6 % (1.0-10.0); NEUTROPHILS % (AUTO) 50.3 % (45.0-75.0); PLATELET COUNT 216 K/UL (150-450); RED BLOOD COUNT 3.86 M/UL (4.20-5.40); RED CELL DISTRIBUTION WIDTH 15.1 % (11.6-14.8); WHITE BLOOD COUNT 6.2 K/UL (4.8-10.8)
[2016-12-13 07:52] VITALS: BP 124/69
[2016-12-13 07:59] LABS: ALANINE AMINOTRANSFERASE 85 U/L (3-33); ALBUMIN/GLOBULIN RATIO 1.3 (1.0-2.7); ANION GAP 18 (5-15); ASPARTATE AMINO TRANSFERASE 47 U/L (5-40); CALCIUM 8.5 mg/dL (8.6-10.2); CARBON DIOXIDE 22 mEQ/L (20-30); CHLORIDE 98 mEQ/L (98-107); CREATININE 0.7 mg/dL (0.5-0.9); GLOMERULAR FILTRATION RATE > 60 mL/min (>60); HEMOLYSIS 9; POTASSIUM 3.2 mEQ/L (3.4-4.9); SODIUM 138 mEQ/L (135-145); TOTAL PROTEIN 6.2 g/dL (6.6-8.7)
[2016-12-13] MEDS: Heparin 5000 units/ml inj SUBQ SCH (08:10)
[2016-12-13] MEDS: Lomotil 2.5mg tab ORAL SCH ×3 (08:11→17:34)
--- NOTE | 2016-12-13 10:33 | Infectious Diseases Prog Note ---
Assessment/Plan Assessment/Plan A: The patient is a 26-year-old female Urine culture: mixed organisms Diarrhea Stool culture Stool C. difficile: neg History of alcohol abuse history of pancreatitis history of cholecystectomy PLAN: continue the patient on IV Zosyn d# 2 Monitor CBC Monitor BMP Monitor cultures(stool and blood) We will follow GI recommendations Repeat urine culture and UA Subjective Constitutional: Denies: anorexia, chills, drenching sweats, fatigue, fever, no symptoms, other Allergies: Coded Allergies: TRAZODONE (Verified Allergy, Unknown, 11/07/16) Objective Vital Signs Last 24 Hour Vital Signs Date Time Temp Pulse Resp B/P Pulse Ox O2 Delivery O2 Flow Rate FiO2 12/13/16 07:52 97.3 83 20 124/69 96 Room Air 12/13/16 04:29 97.3 12/13/16 04:00 97.3 63 20 115/71 97 Room Air 12/13/16 00:00 97.7 74 20 119/64 96 Room Air 12/12/16 20:00 98.1 89 22 121/76 95 Room Air 12/12/16 16:20 97.5 78 20 132/92 99 Room Air 12/12/16 12:42 97.7 67 20 121/69 98 Room Air Height (Feet): 5 Height (Inches): 5.00 Weight (Pounds): 247 HEENT: atraumatic Respiratory/Chest: normal breath sounds Cardiovascular: normal rate Abdomen: non distended Microbiology Date/Time Source Procedure Growth Status 12/10/16 14:51 Stool Stool Culture - Preliminary NORMAL FECAL BLAIR. Resulted 12/10/16 14:51 Stool Clostridium difficile Toxin Assay - Final Resulted Laboratory Tests Test 12/13/16 05:40 White Blood Count 6.2 K/UL (4.8-10.8) Red Blood Count 3.86 M/UL (4.20-5.40) L Hemoglobin 11.5 G/DL (12.0-16.0) L Hematocrit 35.0 % (37.0-47.0) L Mean Corpuscular Volume 90 FL (80-99) Mean Corpuscular Hemoglobin 29.7 PG (27.0-31.0) Mean Corpuscular Hemoglobin Concent 32.8 G/DL (32.0-36.0) Red Cell Distribution Width 15.1 % (11.6-14.8) H Platelet Count 216 K/UL (150-450) Mean Platelet Volume 6.8 FL (6.5-10.1) Neutrophils (%) (Auto) 50.3 % (45.0-75.0) Lymphocytes (%) (Auto) 36.8 % (20.0-45.0) Monocytes (%) (Auto) 9.6 % (1.0-10.0) Eosinophils (%) (Auto) 2.3 % (0.0-3.0) Basophils (%) (Auto) 1.0 % (0.0-2.0) Sodium Level 138 mEQ/L (135-145) Potassium Level 3.2 mEQ/L (3.4-4.9) L Chloride Level 98 mEQ/L (98-107) Carbon Dioxide Level 22 mEQ/L (20-30) Anion Gap 18 (5-15) H Blood Urea Nitrogen 7 mg/dL (7-23) Creatinine 0.7 mg/dL (0.5-0.9) Estimat Glomerular Filtration Rate > 60 mL/min (>60) Glucose Level 103 mg/dL (74-106) Calcium Level 8.5 mg/dL (8.6-10.2) L Total Bilirubin 0.3 mg/dL (0.0-1.2) Aspartate Amino Transf (AST/SGOT) 47 U/L (5-40) H Alanine Aminotransferase (ALT/SGPT) 85 U/L (3-33) H Alkaline Phosphatase 69 U/L (35-104) Total Protein 6.2 g/dL (6.6-8.7) L Albumin 3.6 g/dL (3.5-5.2) Globulin 2.6 g/dL Albumin/Globulin Ratio 1.3 (1.0-2.7) Current Medications Medications (Trade) Dose Ordered Sig/Shaheen Route PRN Reason Start Time Stop Time Status Last Admin Dose Admin Acetaminophen (Tylenol) 650 mg Q4H PRN ORAL fever 12/10/16 12:30 01/09/17 12:29 Al Hydroxide/Mg Hydroxide (Mylanta II) 30 ml Q6H PRN ORAL dyspepsia 12/10/16 12:30 01/09/17 12:29 Dextrose STAT PRN IV Hypoglycemia 12/10/16 12:30 01/09/17 12:29 Dextrose/Sodium Chloride (D5 0.45% NS) 1,000 ml @ 75 mls/hr [id number] IV 12/10/16 13:00 01/09/17 12:59 12/13/16 02:00 Diphenhydramine HCl (Benadryl) 25 mg Q6H PRN ORAL Itching/Pruritis 12/10/16 12:30 01/09/17 12:29 Diphenoxylate HCl/ Atropine (Lomotil) 5 mg TID ORAL 12/12/16 13:00 01/11/17 12:59 12/12/16 13:10 Heparin Sodium (Porcine) (Heparin 5000 units/ml) 5,000 units EVERY 12 HOURS SUBQ 12/10/16 21:00 01/09/17 20:59 12/13/16 08:10 Loperamide HCl (Imodium) 2 mg Q4H PRN ORAL Diarrhea 12/10/16 18:15 01/09/17 18:14 12/11/16 13:34 Morphine Sulfate (Morphine Sulfate) 2 mg EVERY 4 HOURS PRN IVP severe Pain (Pain Scale 7-10) 12/10/16 12:30 12/17/16 12:29 12/13/16 08:10 Nitroglycerin (Ntg) 0.4 mg Q5M X 3 DOSES PRN SL Prn Chest Pain 12/10/16 12:30 01/09/17 12:29 Ondansetron HCl (Zofran) 4 mg Q6H PRN IVP Nausea & Vomiting 12/10/16 12:30 01/09/17 12:29 12/12/16 13:13 Piperacillin Sod/ Tazobactam Sod/ Sodium Chloride (Zosyn/Sodium Chloride) 110 ml @ 27.5 mls/hr EVERY 8 HOURS IVPB 12/10/16 14:00 12/17/16 13:59 12/13/16 05:55 Polyethylene Glycol (Miralax) 17 gm HSPRN PRN ORAL Constipation 12/10/16 12:30 01/09/17 12:29 Potassium Chloride (K-Dur) 40 meq ONCE ONCE ORAL 12/13/16 11:00 12/13/16 11:01 Simethicone (Mylicon) 80 mg QID PRN ORAL GAS PAIN 12/10/16 13:45 01/09/17 13:44 12/13/16 04:16 Temazepam (Restoril) 15 mg HSPRN PRN ORAL Insomnia 12/10/16 12:30 12/17/16 12:29 12/10/16 22:25 REG CORBIN M.D. Dec 13, 2016 10:33
--- NOTE | 2016-12-13 11:21 | GI Progress Note ---
Assessment/Plan Problems: (1) Abdominal gas pain ICD Codes: R14.1 - Gas pain SNOMED: 05211916 (2) Transaminitis ICD Codes: R74.0 - Nonspecific elevation of levels of transaminase and lactic acid dehydrogenase [LDH] SNOMED: 089453992 (3) Nausea & vomiting ICD Codes: R11.2 - Nausea with vomiting, unspecified SNOMED: 33581011 (4) Stress ICD Codes: F43.9 - Reaction to severe stress, unspecified SNOMED: 519680320, 82455892 (5) Abdominal pain ICD Codes: R10.9 - Unspecified abdominal pain SNOMED: 56109868, 88220288 Qualifiers: Qualified Codes: R10.84 - Generalized abdominal pain (6) Diarrhea ICD Codes: R19.7 - Diarrhea, unspecified SNOMED: 79915192 Status: unchanged Status Narrative Discussed with Dr. Lezama. Assessment/Plan APCT reviewed >> negative for dilated ducts lipase negative HcG >> negative utox >> positive for MJ cdiff negative stool culture > normal fecal andre symptomatic treatment at this time Lomotil TID, decrease dose today soft diet, tolerating IV hydration and electrolyte replacement zofran prn simethicone prn fu O&P avoid ETOH repeat LFTs fu labs Subjective Subjective diarrhea stomach cramps gas pain nausea Objective Last 24 Hour Vital Signs Date Time Temp Pulse Resp B/P Pulse Ox O2 Delivery O2 Flow Rate FiO2 12/13/16 07:52 97.3 83 20 124/69 96 Room Air 12/13/16 04:29 97.3 12/13/16 04:00 97.3 63 20 115/71 97 Room Air 12/13/16 00:00 97.7 74 20 119/64 96 Room Air 12/12/16 20:00 98.1 89 22 121/76 95 Room Air 12/12/16 16:20 97.5 78 20 132/92 99 Room Air 12/12/16 12:42 97.7 67 20 121/69 98 Room Air Intake and Output 12/12/16 12/13/16 19:00 07:00 Intake Total 927.5 ml 650.0 ml Balance 927.5 ml 650.0 ml Intake Oral 360 ml 240 ml IV Total 567.5 ml 410.0 ml # Voids 2 3 # Bowel Movements 8 Laboratory Tests Test 12/13/16 05:40 White Blood Count 6.2 K/UL (4.8-10.8) Red Blood Count 3.86 M/UL (4.20-5.40) L Hemoglobin 11.5 G/DL (12.0-16.0) L Hematocrit 35.0 % (37.0-47.0) L Mean Corpuscular Volume 90 FL (80-99) Mean Corpuscular Hemoglobin 29.7 PG (27.0-31.0) Mean Corpuscular Hemoglobin Concent 32.8 G/DL (32.0-36.0) Red Cell Distribution Width 15.1 % (11.6-14.8) H Platelet Count 216 K/UL (150-450) Mean Platelet Volume 6.8 FL (6.5-10.1) Neutrophils (%) (Auto) 50.3 % (45.0-75.0) Lymphocytes (%) (Auto) 36.8 % (20.0-45.0) Monocytes (%) (Auto) 9.6 % (1.0-10.0) Eosinophils (%) (Auto) 2.3 % (0.0-3.0) Basophils (%) (Auto) 1.0 % (0.0-2.0) Sodium Level 138 mEQ/L (135-145) Potassium Level 3.2 mEQ/L (3.4-4.9) L Chloride Level 98 mEQ/L (98-107) Carbon Dioxide Level 22 mEQ/L (20-30) Anion Gap 18 (5-15) H Blood Urea Nitrogen 7 mg/dL (7-23) Creatinine 0.7 mg/dL (0.5-0.9) Estimat Glomerular Filtration Rate > 60 mL/min (>60) Glucose Level 103 mg/dL (74-106) Calcium Level 8.5 mg/dL (8.6-10.2) L Total Bilirubin 0.3 mg/dL (0.0-1.2) Aspartate Amino Transf (AST/SGOT) 47 U/L (5-40) H Alanine Aminotransferase (ALT/SGPT) 85 U/L (3-33) H Alkaline Phosphatase 69 U/L (35-104) Total Protein 6.2 g/dL (6.6-8.7) L Albumin 3.6 g/dL (3.5-5.2) Globulin 2.6 g/dL Albumin/Globulin Ratio 1.3 (1.0-2.7) Height (Feet): 5 Height (Inches): 5.00 Weight (Pounds): 247 General Appearance: no apparent distress, alert, obese Cardiovascular: normal rate Respiratory/Chest: normal breath sounds, no respiratory distress Abdominal Exam: soft, tender Extremities: normal range of motion Madison Tovar N.P. Dec 13, 2016 11:21
[2016-12-13 12:10] VITALS: BP 136/83
[2016-12-13] MEDS ORDERED: D5 1/2NS 1000ml IV ONE (15:40)
[2016-12-13] MEDS ORDERED: Tubing Blood Filter IV ONE (15:40)
[2016-12-13] MEDS ORDERED: NS 275ml ONE (15:40)
[2016-12-13] MEDS ORDERED: Tubing IV Secondary IV ONE (15:40)
[2016-12-13 16:56] VITALS: BP 125/57
--- NOTE | 2016-12-13 17:01 | Pulmonology Progress Note ---
Assessment/Plan Problems: (1) Enteritis (2) Transaminitis (3) Nausea & vomiting Assessment/Plan symptomatic treatment IV fluids check cultures improving home today Subjective ROS Limited/Unobtainable: No Allergies: Coded Allergies: TRAZODONE (Verified Allergy, Unknown, 11/07/16) Objective Last 24 Hour Vital Signs Date Time Temp Pulse Resp B/P Pulse Ox O2 Delivery O2 Flow Rate FiO2 12/13/16 16:56 97.9 71 20 125/57 96 Room Air 12/13/16 12:10 97.3 65 20 136/83 97 Room Air 12/13/16 07:52 97.3 83 20 124/69 96 Room Air 12/13/16 04:29 97.3 12/13/16 04:00 97.3 63 20 115/71 97 Room Air 12/13/16 00:00 97.7 74 20 119/64 96 Room Air 12/12/16 20:00 98.1 89 22 121/76 95 Room Air Intake and Output 12/12/16 12/13/16 19:00 07:00 Intake Total 927.5 ml 650.0 ml Balance 927.5 ml 650.0 ml Intake Oral 360 ml 240 ml IV Total 567.5 ml 410.0 ml # Voids 2 3 # Bowel Movements 8 General Appearance: WD/WN HEENT: normocephalic, atraumatic Respiratory/Chest: chest wall non-tender, lungs clear Breasts: no masses Cardiovascular: normal peripheral pulses, normal rate Abdomen: normal bowel sounds, soft, non tender Genitourinary: normal external genitalia Extremities: no cyanosis Skin: no lesions 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, no motor/sensory deficits Laboratory Tests 12/13/16 05:40: White Blood Count 6.2, Red Blood Count 3.86L, Hemoglobin 11.5L, Hematocrit 35.0L , Mean Corpuscular Volume 90, Mean Corpuscular Hemoglobin 29.7, Mean Corpuscular Hemoglobin Concent 32.8, Red Cell Distribution Width 15.1H, Platelet Count 216, Mean Platelet Volume 6.8, Neutrophils (%) (Auto) 50.3, Lymphocytes (%) (Auto) 36.8, Monocytes (%) (Auto) 9.6, Eosinophils (%) (Auto) 2.3, Basophils (%) (Auto) 1.0, Sodium Level 138, Potassium Level 3.2L, Chloride Level 98, Carbon Dioxide Level 22, Anion Gap 18H, Blood Urea Nitrogen 7, Creatinine 0.7, Estimat Glomerular Filtration Rate > 60, Glucose Level 103, Calcium Level 8.5L, Total Bilirubin 0.3, Aspartate Amino Transf (AST/SGOT) 47H, Alanine Aminotransferase (ALT/SGPT) 85H, Alkaline Phosphatase 69, Total Protein 6.2L, Albumin 3.6, Globulin 2.6, Albumin/Globulin Ratio 1.3 Current Medications Medications (Trade) Dose Ordered Sig/Shaheen Route PRN Reason Start Time Stop Time Status Last Admin Dose Admin Acetaminophen (Tylenol) 650 mg Q4H PRN ORAL fever 12/10/16 12:30 01/09/17 12:29 Al Hydroxide/Mg Hydroxide (Mylanta II) 30 ml Q6H PRN ORAL dyspepsia 12/10/16 12:30 01/09/17 12:29 Dextrose STAT PRN IV Hypoglycemia 12/10/16 12:30 01/09/17 12:29 Dextrose/Sodium Chloride (D5 0.45% NS) 1,000 ml @ 75 mls/hr [id number] IV 12/10/16 13:00 01/09/17 12:59 12/13/16 02:00 Diphenhydramine HCl (Benadryl) 25 mg Q6H PRN ORAL Itching/Pruritis 12/10/16 12:30 01/09/17 12:29 Diphenoxylate HCl/ Atropine (Lomotil) 2.5 mg TID ORAL 12/13/16 13:00 01/12/17 12:59 12/13/16 13:20 Heparin Sodium (Porcine) (Heparin 5000 units/ml) 5,000 units EVERY 12 HOURS SUBQ 12/10/16 21:00 01/09/17 20:59 12/13/16 08:10 Loperamide HCl (Imodium) 2 mg Q4H PRN ORAL Diarrhea 12/10/16 18:15 01/09/17 18:14 12/11/16 13:34 Morphine Sulfate (Morphine Sulfate) 2 mg EVERY 4 HOURS PRN IVP severe Pain (Pain Scale 7-10) 12/10/16 12:30 12/17/16 12:29 12/13/16 16:10 Nitroglycerin (Ntg) 0.4 mg Q5M X 3 DOSES PRN SL Prn Chest Pain 12/10/16 12:30 01/09/17 12:29 Ondansetron HCl (Zofran) 4 mg Q6H PRN IVP Nausea & Vomiting 12/10/16 12:30 01/09/17 12:29 12/12/16 13:13 Piperacillin Sod/ Tazobactam Sod/ Sodium Chloride (Zosyn/Sodium Chloride) 110 ml @ 27.5 mls/hr EVERY 8 HOURS IVPB 12/10/16 14:00 12/17/16 13:59 12/13/16 13:20 Polyethylene Glycol (Miralax) 17 gm HSPRN PRN ORAL Constipation 12/10/16 12:30 01/09/17 12:29 Simethicone (Mylicon) 80 mg QID PRN ORAL GAS PAIN 12/10/16 13:45 01/09/17 13:44 12/13/16 04:16 Temazepam (Restoril) 15 mg HSPRN PRN ORAL Insomnia 12/10/16 12:30 12/17/16 12:29 12/10/16 22:25 MINA VASQUEZ Dec 13, 2016 17:01
[2016-12-13] MEDS ORDERED: ACETAMINOPHEN-1 EAC1 ORAL (17:58)
[2016-12-13] MEDS ORDERED: CARAFATE1 G1 ORAL (17:58)
--- NOTE | 2016-12-14 15:39 | Discharge Summary ---
Discharge Summary Hospital Course Date of Admission Dec 10, 2016 at 11:20 Date of Discharge Dec 13, 2016 at 18:05 Admitting Diagnosis ABDOMINAL PAIN HPI Gabriel Garcia is a 26 year old female who was admitted on Dec 10, 2016 at 11 :20 for Abdominal Pain Hospital Course [id number] Discharge Discharge Disposition Patient was discharged to Home (01) Discharge Diagnoses: Ericka Reyna NP Dec 14, 2016 15:39
--- NOTE | 2016-12-15 02:38 | Discharge Summary 2 SIG ---
DATE OF ADMISSION: 12/10/2016 DATE OF DISCHARGE: 12/13/2016 CONSULTANTS: 1. Charlie Nj M.D 2. Rocco Lezama M.D. BRIEF HOSPITAL COURSE: The patient is a 26-year-old female, who presented to emergency department complaining of acute onset of abdominal pain for the last two to three days. The patient has epigastric pain associated with nausea, vomiting, and diarrhea and has had over 20 episodes of diarrhea since the last . Symptoms were noted to be severe although denies fever. Denies dysuria, frequency, or vaginal discharge. Denies rectal bleed. On evaluation at ED, the patient had elevated liver transaminases and was placed on NPO with IV fluids and empiric antibiotics. GI evaluation was done. A CT of the abdomen and pelvis was reviewed and was negative for dilated ducts. Lipase was negative. She was given symptomatic treatment with Zofran and simethicone p.r.n. Diet was advanced as tolerated. Urine toxicology was positive for marijuana and was given Lomotil. Stool culture showed normal fecal andre with C. difficile negative. She was also seen by Infectious Disease specialist and was placed on Zosyn. Abdominal ultrasound showed surgically absent gallbladder. No significant abnormality. Symptoms improved and the patient was discharged home. Advised to follow up with PMD. FINAL DIAGNOSES: 1. Acute enteritis. 2. Transaminitis. 3. Nausea and vomiting. 4. Lung cancer. Usman Poole M.D. I have been assigned to dictate discharge summary on this account and I was not involved in the patient's management. Ericka Reyna N.P. DR: CARTER JOB#: [id number] CC:
== END 2016-12-13 18:05 | disposition home or self-care (01) | DRG 249 ==
LOC: ENRESERVDT → ENRESERVTM → EMR 06:57 → 4W 11:20 → EDBEDREQ 12:01
DX: K52.9 Noninfective gastroenteritis and colitis, unspecified (principal); F10.21 Alcohol dependence, in remission; R74.0 Nonspecific elevation of levels of transaminase and lactic acid dehydrogenase [LDH]; Z88.8 Allergy status to other drugs, medicaments and biological substances; F43.9 Reaction to severe stress, unspecified
CPT/HCPCS: 36415; 74177; 76700; 80053; 80300; 81003; 81025; 82150; 83690; 84703; 85007; 85025; 85730; 87045; 87324; J2405; J8499

== ENCOUNTER 2017-09-10 09:15 | Emergency (ER) | payer SELFPAY ==
[~2017-09-10] VITALS: Ht 162.6 cm; Wt 111.6 kg
[~2017-09-10 09:15] MED LIST changes: +ACETAMINOPHEN-1 EAC1 ORAL; +CARAFATE1 G1 ORAL
[2017-09-10] MEDS ORDERED: LORAZEPAM1 MG ORAL (09:26)
[2017-09-10] MEDS ORDERED: ZOFRAN4 M3 ORAL (09:26)
--- NOTE | 2017-09-10 10:00 | Emergency Room Report ---
History of Present Illness General Chief Complaint: General Complaint Source: Patient Present Illness HPI Patient presents with complaint of vomiting Diarrhea Patient reports diffuse abdominal discomfort Low-grade fever Patient was seen at different emergency room 2 days ago Diagnosed with insomnia Patient was put on Ativan and Abilify Denies any neck pain or photophobia Patient did describe midsternal chest discomfort denies any shortness of breath denies any change of position Allergies: Coded Allergies: ALPRAZOLAM (Verified Allergy, Unknown, 09/10/17) "Bad mental issue side effect." TRAZODONE (Verified Allergy, Unknown, 11/07/16) Patient History Past Medical History: see triage record Past Surgical History: other - cholecystectomy Pertinent Family History: other - Recent passing of family member and burial Last Menstrual Period: "End may." Now: No Reviewed Nursing Documentation: PMH: Agreed, PSxH: Agreed Nursing Documentation-PMH Hx Cardiac Problems: No Hx Asthma: Yes - Bronchial asthma Hx Cancer: No Hx Gastrointestinal Problems: Yes - Pancreatitis?, Cholecystectomy 2007 Hx Neurological Problems: No Review of Systems All Other Systems: negative except mentioned in HPI Physical Exam Vital Signs Date Time Temp Pulse Resp B/P (MAP) Pulse Ox O2 Delivery O2 Flow Rate FiO2 09/10/17 09:20 99.9 129 22 146/101 96 Room Air Sp02 EP Interpretation: reviewed, normal General Appearance: well appearing, mild distress Head: normocephalic, atraumatic Eyes: bilateral eye PERRL, bilateral eye EOMI ENT: hearing grossly normal, normal pharynx, TMs + canals normal, uvula midline Neck: full range of motion, supple, no meningismus, no bony tend Respiratory: lungs clear, normal breath sounds, no rhonchi, no respiratory distress, no retraction, no accessory muscle use Cardiovascular #1: normal peripheral pulses, regular rate, rhythm, no edema, no gallop, no JVD, no murmur Gastrointestinal: normal bowel sounds, non tender - Subjectively points diffusely to the epigastric and mid abdominal area, soft, no mass, no organomegaly, non-distended, no guarding, no hernia, no pulsatile mass, no rebound Genitourinary: no CVA tenderness Musculoskeletal: normal inspection, back normal Neurologic: oriented x3, responsive, store custodian III-XII nml as tested, motor strength/ tone normal, sensory intact Psychiatric: mood/affect normal Skin: normal color, no rash, warm/dry, palpation normal Lymphatic: normal inspection, no adenopathy Medical Decision Making Diagnostic Impression: Primary Impression: Nausea & vomiting Additional Impression: Abdominal pain ER Course With the patient's history and examination, multiple differentials considered, including but not limited to , ectopic , ovarian torsion, gastritis, cholecystitis, pancreatitis, appendicitis patient's blood work is normal She has done significantly better given the History exam and findings patient appears to have symptoms associated with flulike pathology Remains hemodynamically stable at this time will have conservative outpatient followup Labs Test 09/10/17 10:00 White Blood Count 8.1 K/UL (4.8-10.8) Red Blood Count 4.37 M/UL (4.20-5.40) Hemoglobin 13.5 G/DL (12.0-16.0) Hematocrit 41.6 % (37.0-47.0) Mean Corpuscular Volume 95 FL (80-99) Mean Corpuscular Hemoglobin 30.8 PG (27.0-31.0) Mean Corpuscular Hemoglobin Concent 32.4 G/DL (32.0-36.0) Red Cell Distribution Width 13.7 % (11.6-14.8) Platelet Count 210 K/UL (150-450) Mean Platelet Volume 6.1 FL (6.5-10.1) Neutrophils (%) (Auto) 80.9 % (45.0-75.0) Lymphocytes (%) (Auto) 7.3 % (20.0-45.0) Monocytes (%) (Auto) 8.8 % (1.0-10.0) Eosinophils (%) (Auto) 2.2 % (0.0-3.0) Basophils (%) (Auto) 0.7 % (0.0-2.0) Urine Color Yellow Urine Appearance Slightly cloudy Urine pH 6 (4.5-8.0) Urine Specific [place] 1.015 (1.005-1.035) Urine Protein 2+ (NEGATIVE) Urine Glucose (UA) Negative (NEGATIVE) Urine Ketones Negative (NEGATIVE) Urine Occult Blood 3+ (NEGATIVE) Urine Nitrite Negative (NEGATIVE) Urine Bilirubin Negative (NEGATIVE) Urine Urobilinogen 1 MG/DL (0.0-1.0) Urine Leukocyte Esterase 1+ (NEGATIVE) Urine RBC 5-10 /HPF (0 - 2) Urine WBC 2-4 /HPF (0 - 2) Urine Squamous Epithelial Cells Many /LPF (NONE/OCC) Urine Bacteria Few /HPF (NONE) Urine Hyaline Casts 0-2 /LPF (NONE) Urine Granular Casts 0-2 /LPF (NONE) Urine Fine Granular Casts 2-4 /LPF (NONE) Urine Mucus Moderate /LPF (NONE/OCC) Urine HCG, Qualitative Negative Sodium Level 136 MMOL/L (136-145) Potassium Level 3.6 MMOL/L (3.5-5.1) Chloride Level 100 MMOL/L (98-107) Carbon Dioxide Level 26 MMOL/L (21-32) Anion Gap 10 mmol/L (5-15) Blood Urea Nitrogen 7 mg/dL (7-18) Creatinine 0.7 MG/DL (0.55-1.30) Estimat Glomerular Filtration Rate > 60 mL/min (>60) Glucose Level 103 MG/DL (74-106) Calcium Level 8.8 MG/DL (8.5-10.1) Total Bilirubin 1.1 MG/DL (0.2-1.0) Direct Bilirubin 0.3 MG/DL (0.0-0.3) Aspartate Amino Transf (AST/SGOT) 81 U/L (15-37) Alanine Aminotransferase (ALT/SGPT) 128 U/L (12-78) Alkaline Phosphatase 61 U/L (46-116) Total Protein 7.4 G/DL (6.4-8.2) Albumin 3.9 G/DL (3.4-5.0) Globulin 3.5 g/dL Albumin/Globulin Ratio 1.1 (1.0-2.7) Lipase 215 U/L (73-393) Last Vital Signs Date Time Temp Pulse Resp B/P (MAP) Pulse Ox O2 Delivery O2 Flow Rate FiO2 09/10/17 09:20 99.9 129 22 146/101 96 Room Air Status: improved Disposition: HOME, SELF-CARE Condition: Improved Scripts Famotidine (PEPCID) 40 Mg Tablet 40 MG PO DAILY, #7 TAB 0 Refills Prov: WILLIAM SIDHU.[place] 09/10/17 Ondansetron Odt* (ZOFRAN ODT*) 4 Mg Tab.rapdis 4 MG ORAL Q6H Y for Nausea & Vomiting, #10 TAB 0 Refills Prov: WILLIAM SIDHU D.O. 09/10/17 Referrals: NOT CHOSEN IPA/MD,REFERRING (PCP) Additional Instructions: Patient is provided with the discharge instructions notified to follow up with primary doctor in the next 2-3 days otherwise return to the er with any worsening symptoms. Please note that this report is being documented using DRAGON technology. This can lead to erroneous entry secondary to incorrect interpretation by the dictating instrument. WILLIAM SIDHU D.O. Sep 10, 2017 10:00
[2017-09-10 10:02] VITALS: BP 142/91
[2017-09-10 10:12] LABS: BASOPHILS % (AUTO) 0.7 % (0.0-2.0); EOSINOPHILS % (AUTO) 2.2 % (0.0-3.0); HEMATOCRIT 41.6 % (37.0-47.0); HEMOGLOBIN 13.5 G/DL (12.0-16.0); LYMPHOCYTES % (AUTO) 7.3 % (20.0-45.0); MEAN CORPUSCULAR VOLUME 95 FL (80-99); MONOCYTES % (AUTO) 8.8 % (1.0-10.0); NEUTROPHILS % (AUTO) 80.9 % (45.0-75.0); PLATELET COUNT 210 K/UL (150-450); RED BLOOD COUNT 4.37 M/UL (4.20-5.40); RED CELL DISTRIBUTION WIDTH 13.7 % (11.6-14.8); WHITE BLOOD COUNT 8.1 K/UL (4.8-10.8)
[2017-09-10 10:24] LABS: ANION GAP 10 mmol/L (5-15); BLOOD UREA NITROGEN 7 mg/dL (7-18); CALCIUM 8.8 MG/DL (8.5-10.1); CARBON DIOXIDE 26 MMOL/L (21-32); CHLORIDE 100 MMOL/L (98-107); CREATININE 0.7 MG/DL (0.55-1.30); POTASSIUM 3.6 MMOL/L (3.5-5.1); SODIUM 136 MMOL/L (136-145)
[2017-09-10 10:28] LABS: APPEARANCE,URINE SLIGHTLY CLOUDY; BILIRUBIN, URINE NEGATIVE (NEGATIVE); GLUCOSE, URINE (UA) NEGATIVE (NEGATIVE); KETONES,URINE NEGATIVE (NEGATIVE); LEUKOCYTE ESTERASE ,URINE 1+ (NEGATIVE); NITRITE,URINE NEGATIVE (NEGATIVE); PH,URINE 6 (4.5-8.0); PROTEIN,URINE 2+ (NEGATIVE); UROBILINOGEN,URINE 1 MG/DL (0.0-1.0)
[2017-09-10 10:35] LABS: ALANINE AMINOTRANSFERASE 128 U/L (12-78); ALBUMIN 3.9 G/DL (3.4-5.0); ALBUMIN/GLOBULIN RATIO 1.1 (1.0-2.7); ALKALINE PHOSPHATASE 61 U/L (46-116); ASPARTATE AMINO TRANSFERASE 81 U/L (15-37); BILIRUBIN,TOTAL 1.1 MG/DL (0.2-1.0)
[2017-09-10 10:37] LABS: COLOR,URINE YELLOW
[2017-09-10 10:40] LABS: BILIRUBIN,DIRECT 0.3 MG/DL (0.0-0.3)
[2017-09-10] MEDS ORDERED: Tylenol #3 tab (300mg/30mg) ORAL ONE (11:00)
[2017-09-10 12:55] VITALS: BP 130/78
[2017-09-10] MEDS ORDERED: ZOFRAN ODT4 MG ORAL (13:03)
[2017-09-10] MEDS ORDERED: PEPCID40 MG PO (13:03)
[2017-09-10 13:14] VITALS: BP 130/78
== END 2017-09-10 13:16 | disposition home or self-care (01) ==
LOC: EMR 09:28
DX: R11.2 Nausea with vomiting, unspecified (principal); R10.9 Unspecified abdominal pain; Z90.49 Acquired absence of other specified parts of digestive tract; J45.909 Unspecified asthma, uncomplicated; Z88.8 Allergy status to other drugs, medicaments and biological substances
CPT/HCPCS: 36415; 80053; 81003; 81025; 82248; 83690; 85025; 96361; 96374; 99284; J2405

== ENCOUNTER 2018-05-06 22:37 | Emergency (ER) | payer OTHER ==
[~2018-05-06] VITALS: Ht 165.1 cm; Wt 112.0 kg
[~2018-05-06 22:37] MED LIST changes: +LORAZEPAM1 MG ORAL; +PEPCID40 MG PO; +ZOFRAN4 M3 ORAL
[2018-05-06 22:53] VITALS: BP 118/80
[2018-05-06] MEDS ORDERED: Ketorolac 30mg Inj IV ONE (23:15)
[2018-05-06 23:52] LABS: APPEARANCE,URINE CLEAR; BILIRUBIN, URINE NEGATIVE (NEGATIVE); COLOR,URINE PALE YELLOW; GLUCOSE, URINE (UA) NEGATIVE (NEGATIVE); KETONES,URINE NEGATIVE (NEGATIVE); NITRITE,URINE NEGATIVE (NEGATIVE); PH,URINE 5 (4.5-8.0); PROTEIN,URINE 1+ (NEGATIVE); UROBILINOGEN,URINE NORMAL MG/DL (0.0-1.0)
[2018-05-06 23:58] LABS: LEUKOCYTE ESTERASE ,URINE 1+ (NEGATIVE)
[2018-05-07 00:04] LABS: BASOPHILS % (AUTO) 0.9 % (0.0-2.0); EOSINOPHILS % (AUTO) 3.1 % (0.0-3.0); HEMATOCRIT 38.9 % (37.0-47.0); HEMOGLOBIN 13.5 G/DL (12.0-16.0); LYMPHOCYTES % (AUTO) 23.1 % (20.0-45.0); MEAN CORPUSCULAR VOLUME 84 FL (80-99); MONOCYTES % (AUTO) 6.5 % (1.0-10.0); NEUTROPHILS % (AUTO) 66.4 % (45.0-75.0); PLATELET COUNT 313 K/UL (150-450); RED BLOOD COUNT 4.65 M/UL (4.20-5.40); RED CELL DISTRIBUTION WIDTH 13.1 % (11.6-14.8); WHITE BLOOD COUNT 12.7 K/UL (4.8-10.8)
--- NOTE | 2018-05-07 00:14 | Emergency Room Report ---
History of Present Illness General Chief Complaint: Abdominal Pain Source: Patient Present Illness HPI This 27-year-old female with history of gallstone with cholecystectomy in the past. She has a history pancreatitis 2 in the past. She presents with chief point abdominal pain. Onset for about a week but worse the last few days. Nauseous but no vomiting. Multiple bouts of area tonight. Pain is sharp and crampy in nature. 8 out of 10. No fever or chills. No trauma. No urinary complaint. Nothing made it better. Movement and palpation made it worse Allergies: Coded Allergies: ALPRAZOLAM (Verified Allergy, Unknown, 09/10/17) "Bad mental issue side effect." TRAZODONE (Verified Allergy, Unknown, 11/07/16) Patient History Past Medical History: see triage record, old chart reviewed Past Surgical History: gloria, other Pertinent Family History: none Social History: Denies: smoking Last Menstrual Period: Mar Now: No Immunizations: other Reviewed Nursing Documentation: PMH: Agreed; PSxH: Agreed Nursing Documentation-PMH Hx Cardiac Problems: No Hx Asthma: Yes - Bronchial asthma Hx Cancer: No Hx Gastrointestinal Problems: Yes - Pancreatitis?, Cholecystectomy 2008 Hx Neurological Problems: No Review of Systems Eye: Denies: eye pain, blurred vision ENT: Denies: ear pain, nose congestion, throat swelling Respiratory: Denies: cough, shortness of breath Cardiovascular: Denies: chest pain, palpitations Gastrointestinal: Reports: abdominal pain, diarrhea, nausea, vomiting Musculoskeletal: Denies: back pain, joint pain Skin: Denies: rash Neurological: Denies: headache, numbness Endocrine: Denies: increased thirst, increased urine Hematologic/Lymphatic: Denies: easy bruising All Other Systems: negative except mentioned in HPI Physical Exam Vital Signs Date Time Temp Pulse Resp B/P (MAP) Pulse Ox O2 Delivery O2 Flow Rate FiO2 05/06/18 22:41 98.1 73 18 118/80 96 Room Air 98.1 vitals normal Sp02 EP Interpretation: reviewed, normal General Appearance: well appearing, no apparent distress, alert, obese Head: normocephalic, atraumatic Eyes: bilateral eye PERRL, bilateral eye EOMI ENT: hearing grossly normal, normal pharynx Neck: full range of motion, supple, no meningismus Respiratory: chest non-tender, lungs clear, normal breath sounds Cardiovascular #1: regular rate, rhythm, no murmur Gastrointestinal: normal bowel sounds, no mass, no organomegaly, no bruit, non- distended, tenderness - diffuse Musculoskeletal: back normal, gait/station normal, normal range of motion Psychiatric: mood/affect normal Skin: warm/dry Medical Decision Making Diagnostic Impression: Primary Impression: Abdominal pain Qualified Codes: R10.84 - Generalized abdominal pain Additional Impression: Urinary tract infection Qualified Codes: N30.00 - Acute cystitis without hematuria ER Course Patient with abdominal pain. No acute abdomen. Translator film showed constipation. Initially she didn't mention anything about pain medication. When I said drug screen is positive for opiates, she said that she took one [place] prior to arrival. We'll discharge home. Lab Results Impression labs unremarkable CT/MRI/US Diagnostic Results CT/MRI/US Diagnostic Results : Imaging Test Ordered: CT abdomen and pelvis Impression negative per radiologist Last Vital Signs Date Time Temp Pulse Resp B/P (MAP) Pulse Ox O2 Delivery O2 Flow Rate FiO2 05/06/18 23:56 98.1 05/06/18 22:41 73 18 118/80 96 Room Air Status: improved Disposition: HOME, SELF-CARE Condition: Stable Scripts Polyethylene Glycol 3350* (MIRALAX*) 17 Gm Powd.pack 17 GM ORAL DAILY, #14 PACKET Prov: CEZAR BRANDT M.D. 05/07/18 Nitrofurantoin Monohyd/M-Cryst (Nitrofurantoin Stewart-Mcr 100 mg) 100 Mg Capsule 100 MG ORAL Q12H, #14 CAP Prov: CEZAR BRANDT M.D. 05/07/18 Ibuprofen* (MOTRIN*) 600 Mg Tablet 600 MG ORAL THREE TIMES A DAY, #30 TAB 0 Refills Prov: CEZAR BRANDT M.D. 05/07/18 Referrals: NON PHYSICIAN (PCP) Patient Instructions: Abdominal Pain, Adult Additional Instructions: Follow-up with your DrPhil in 2-3 days and not better. Return if worse. CEZAR BRANDT M.D. May 07, 2018 00:14
[2018-05-07 00:15] LABS: ANION GAP 8 mmol/L (5-15); BLOOD UREA NITROGEN 16 mg/dL (7-18); CALCIUM 9.5 MG/DL (8.5-10.1); CARBON DIOXIDE 25 MMOL/L (21-32); CHLORIDE 102 MMOL/L (98-107); CREATININE 0.7 MG/DL (0.55-1.30); POTASSIUM 3.7 MMOL/L (3.5-5.1); SODIUM 135 MMOL/L (136-145)
[2018-05-07 00:20] LABS: ALANINE AMINOTRANSFERASE 49 U/L (12-78); ALBUMIN 4.1 G/DL (3.4-5.0); ALBUMIN/GLOBULIN RATIO 1.1 (1.0-2.7); ALKALINE PHOSPHATASE 64 U/L (46-116); ASPARTATE AMINO TRANSFERASE 23 U/L (15-37); BILIRUBIN,TOTAL 0.4 MG/DL (0.2-1.0)
[2018-05-07] MEDS ORDERED: IBUPROFEN600 MG ORAL (01:37)
[2018-05-07] MEDS ORDERED: MIRALAX17 G2 ORAL (01:37)
[2018-05-07] MEDS ORDERED: MACROBID100 MG ORAL (01:37)
[2018-05-07 02:25] VITALS: BP 113/63
--- NOTE | 2018-05-07 08:54 | Diagnostic Imaging Report ---
Indication: Abdominal pain for 3 days Technique: Spiral acquisitions obtained through the abdomen and pelvis. No oral contrast utilized, per emergency room physician request No IV contrast utilized, per referring physician request.. Multiplanar reconstructions were generated. Total dose length product 1152.62 mGycm. CTDIvol(s) 19.95 mGy. Dose reduction achieved using automated exposure control Comparison: 12/10/2016 contrast study, 12/12/2016 ultrasound Findings: Normal appendix. There is colonic diverticulosis, predominantly proximal. No evidence of diverticulitis. No free or loculated intraperitoneal gas or fluid. No small bowel distention. Distal esophagus, stomach, duodenum are unremarkable. Lack of IV contrast limits assessment of the solid organs. The gallbladder is surgically absent. The liver, bile ducts, pancreas, spleen, adrenals, kidneys are unremarkable. There is a retroaortic left renal vein noted. No retroperitoneal or mesenteric mass or adenopathy. No pelvic mass or adenopathy. 2.4 cm presumed dominant follicle is seen in the left ovary. The lung bases demonstrate a calcified nodule in the right perihilar region. This is probably excluded from the previous imaging volume. There is faint groundglass opacity in the left lung base. The bones are unremarkable Impression: No definite acute process Colonic diverticulosis Pain left basilar pulmonary groundglass opacity, nonspecific Other findings as noted, including calcified granuloma in the right lung, retroaortic left renal vein, prior cholecystectomy This agrees with the preliminary interpretation provided overnight by [facility] teleradiology service. The CT scanner at [facility] is accredited by the [employer] and the scans are performed using protocols designed to limit radiation exposure to as low as reasonably achievable to attain images of sufficient resolution adequate for diagnostic evaluation.
== END 2018-05-07 02:25 | disposition home or self-care (01) ==
LOC: EMR 23:28
DX: N30.00 Acute cystitis without hematuria (principal); R10.84 Generalized abdominal pain
CPT/HCPCS: 36415; 74176; 80053; 80307; 81003; 81025; 83690; 85025; 87086; 96361; 96374; 96375; 99284; J1885; J2405